=== PATIENT | male | born 1955 | race Caucasian/White ===

== ENCOUNTER 2018-05-03 05:28 | Inpatient (IN) | payer OTHER ==
[2018-04-24 10:06] VITALS: BMI 22.0
[2018-05-03] VITALS (9 sets, daily range): BP systolic 102–160; BP diastolic 69–89; PULSE 84–104; TEMP 36.5–37; O2SAT 9–97; Ht 177.8 cm; Wt 71.4 kg
[~2018-05-03] VITALS: Ht 177.8 cm; Wt 71.4 kg
[~2018-05-03 05:28] MED LIST: AMLO5TAB3 PO; ASPI81TA28 PO; BUPR-79 PO; CLOP1TAB15 PO; CRS/10 PO; FLM4 PO; FLUT50SP45 NAE; LISI-725 PO; MISCCAP77 PO; NTRGSL/4 UT; OXYC-57 PO; PANT40TA2 PO; SIME1CHW17 PO; TIOT1SPR INH; VENL150C56 PO; VNTHFA/IN INH; [UNRECOGNIZED DRUG - CODE] PO
[2018-05-03] MEDS ORDERED: CEFAZOLIN 1000MG IV PUSH 7.5 ML IV SCH (06:00)
[2018-05-03] MEDS ORDERED: LACTATED RINGER'S 1000ML 1,000 ML IV SCH ×2 (06:00)
--- NOTE | 2018-05-03 06:06 | History and Physical ---
History & Physical Date of Service May 03, 2018. History & Physical Chief Complaint rm#7 here for eval for vascular disease, had previous CEA, left CEA done at [facility] and Right CEA at [facility], stroke during surgery of left CEA. Has complaints of leg claudication. Previous lung surgery ? resection vs lobectomy 12/2016 Reason for Consultation Bilateral lower extremity claudication History of Present Illness I had the pleasure of seeing Erasmo Nichole today for evaluation of his peripheral vascular disease. He is a 62-year-old white male who in 2015 he had a left carotid endarterectomy. This subsequently occluded after surgery leaving him with visual disturbances. He later that year in September underwent a right carotid endarterectomy which was uneventful. He comes in today complaining of claudication of his bilateral lower extremities. This is at less than 25 feet. He denies any rest pain in the lower extremities. Denies any ulcerations. Denies any color changes. He also denies any cerebrovascular insufficiency symptoms other than occasional difficulty with the vision in the left eye. He does have a history of hypertension andlung cancer. He has a strong smoking history. He claims to have smoked 5 packs of cigarettes a day but mostly of them burn out on their own. He says as far as total packs he may have gone through 1 or 2 packs a day. He is now down to half a pack . Review of Systems was obtained. 10 systems are reviewed. Only positive findings were cough heartburn and loss of appetite bladder infections and urinary incontinence. Also the complaints of the HPI. Physical Exam Vitals & Measurements HR: 82 (Monitored) BP: 118/64 SpO2: 97% WT: 70.3 kg Physical exam the patient is awake oriented 3 is in no apparent distress with normal body habitus. Blood pressure is 118/64 and right 92/680 on the left. Head and neck within normal limits no soft carotid bruits. Lungs were clear with distant breath sounds. Heart a regular rhythm times and is benign. No aneurysmal dilatation is appreciated. Vascular exam of the lower extremities showed femoral pulses to be +2 on the left and +1 on the right but both sides were on the weak side. There are no pedal pulses in either foot. Upper and lower extremities showed no evidenceof ischemic changes. There are no ulcerations present in either foot. Neurologic exam is grossly intact motor and sensory function. Assessment/Plan. Atherosclerosis of [place] arteries of extremities with intermittent claudication , bilateral legs We will obtain a CTA of the abdominal aorta pelvis and runoff vessels. This will better define the lesions that were dealing with. Hopefully there is lesions present that are amenable to balloon angioplasty and stenting versus open procedure. We will keep you informed of his CT results and his future plans. Thank you very much for letting us participate in the care of this patient DREW Akers MD
[2018-05-03] MEDS ORDERED: ROCURONIUM BROMIDE 10 MG/ML 5 ML VIAL ONE (06:44)
[2018-05-03] MEDS ORDERED: DEXAMETHASONE SOD INJ 4 MG/ML VIAL ONE (06:44)
[2018-05-03] MEDS ORDERED: ONDANSETRON INJ 2 MG/ML 2 ML VIAL ONE (06:44)
[2018-05-03] MEDS ORDERED: NEOSTIGMINE METHYLSULFATE 5 MG/5 ML SYR ONE (06:44)
[2018-05-03] MEDS ORDERED: LIDOCAINE HCL 2% 2 ML VIAL (20MG/ML) ONE (06:44)
[2018-05-03] MEDS ORDERED: PROPOFOL IV EMULSION 10 MG/ML 20 ML VIAL ONE (06:44)
[2018-05-03] MEDS ORDERED: GLYCOPYRROLATE INJ 0.2 MG/ML VIAL ONE (06:44)
[2018-05-03] MEDS ORDERED: MIDAZOLAM HCL 1 MG/ML 2ML VIAL ONE (06:44)
[2018-05-03] MEDS ORDERED: FENTANYL CITRATE INJ 50 MCG/1 ML 2 ML VIAL ONE (06:45)
[2018-05-03] MEDS ORDERED: HEPARIN SOD (PORCINE) 1000 UNIT/ML 10 ML VIAL ONE ×3 (07:15→09:58)
--- NOTE | 2018-05-03 07:16 | History & Physical Bridge Note ---
H&P Re-Evaluation Bridge Note: I have examined the patient, reviewed the History & Physical and in the interval since the performance of the History & Physical I have noted the following changes of clinical significance: No changes noted CTA showed iliac and femoral disease on the right. He is here for a right femoral endarterectomy and possible iliac stenting. I have discussed the risks options and benefits of the procedure with the patient. The patient understands the risks options and benefits and agrees to the procedure.
[2018-05-03] MEDS ORDERED: GELATIN SPONGE SZ 100 ONE (07:40)
[2018-05-03] MEDS ORDERED: PAPAVERINE HCL INJ 30 MG/ML 2 ML VIAL ONE (07:40)
[2018-05-03] MEDS ORDERED: HEPARIN SOD (PORCINE) 5000 UNIT/ML 1 ML VIAL ONE ×2 (07:40→09:51)
[2018-05-03] MEDS ORDERED: BUPIVACAINE/EPINEPHRINE 0.5% MPF 1:200,000 30 ML VIAL ONE (07:40)
[2018-05-03] MEDS ORDERED: LIDOCAINE HCL 1% 20 ML VIAL ONE (07:40)
[2018-05-03] MEDS ORDERED: CEFAZOLIN SOD 1 GM VIAL ONE (07:40)
[2018-05-03] MEDS ORDERED: THROMBIN FOR SOLN 20000 UNIT KIT ONE (07:41)
[2018-05-03] MEDS ORDERED: PHENYLEPHRINE HCL INJ 10 MG/ML VIAL ONE (08:33)
[2018-05-03] MEDS ORDERED: EpHEDrine SULFATE 50MG/5ML SYR ONE (08:33)
[2018-05-03] MEDS ORDERED: VASOPRESSIN 20 UNIT/ML VIAL ONE (08:36)
[2018-05-03] MEDS ORDERED: EpHEDrine SULFATE INJ 50 MG/ML AMP IV PRN (09:45)
[2018-05-03] MEDS ORDERED: MEPERIDINE HCL 25 MG/ML CARP IV PRN (09:45)
[2018-05-03] MEDS ORDERED: LABETALOL HCL IV 5 MG/ML 20ML IV PRN (09:45)
[2018-05-03] MEDS ORDERED: ATROPINE SULFATE 0.1 MG/ML 5ML SYR IV PRN (09:45)
[2018-05-03] MEDS ORDERED: ONDANSETRON INJ 2 MG/ML 2 ML VIAL IV PRN (09:45)
[2018-05-03] MEDS ORDERED: IODIXANOL (VISIPAQUE) 270 MG/ML 50ML IV ONE (10:01)
[2018-05-03] MEDS ORDERED: SURGICEL ABSORB HEMOSTAT 2IN X 14IN TOP ONE (11:37)
--- NOTE | 2018-05-03 11:51 | [facility] Post Operative Brief Note ---
Immediate Operative Summary Operative Date May 03, 2018. Pre-Operative Diagnosis Right illiac artery stenosis Right common femoral artery stenosis Post-Operative Diagnosis Same Procedure(s) Performed Open stenting of right common illiac and external arteries Right common femoral endarterectomy with patch Surgeon Dr Akers Textile Machine Operator Surgeon(s) Marley Osei MD Estimated Blood Loss 200ML Findings Consistent with Post-Op Diagnosis Specimens A. Left femoral plaque Anesthesia Type General Complication(s) none Disposition Accompanied Pt To Recover: no Disposition: Recovery Room / PACU
[2018-05-03] MEDS ORDERED: NITROGLYCERIN 0.4 MG SL PER TAB CHARGE UT PRN (12:00)
[2018-05-03] MEDS ORDERED: ALBUTEROL HFA 8 GM INHALER INH PRN (12:00)
[2018-05-03] MEDS ORDERED: PROTAMINE SULFATE 10 MG/ML 5 ML VIAL IV ONE (12:05)
[2018-05-03] MEDS: FENTANYL CITRATE INJ 50 MCG/1 ML 2 ML VIAL IV PRN ×4 (12:28→12:50)
[2018-05-03] MEDS: HYDROmorphone INJ 0.5 MG/0.5 ML SYR IV PRN ×2 (12:55→13:14)
[2018-05-03 13:00] LABS: BASO % 0.1 %; BASO ABS # 0.02 K/uL (0-0.2); EOS % 0.8 %; EOS ABS # 0.13 K/uL (0-0.5); HEMATOCRIT 32.7 % (42-52); IG# 0.06 K/uL (0.00-0.02); LYMPH % 6.6 %; LYMPH ABS # 1.06 K/uL (1.2-3.4); MEAN CELL VOLUME 92.1 fL (80-100); MEAN CORPUSCULAR HGB CONC 33.6 g/dl (32-36); MEAN PLATELET VOLUME 8.1 fL (7.4-10.4); MONO % 1.4 %; MONO ABS # 0.22 K/uL (0.11-0.59); NEUT % 90.7 %; NEUT ABS # 14.58 K/uL (1.4-6.5); PLATELET COUNT 178 K/uL (130-400); RED CELL DISTRIBUTION WIDTH CV 13.5 % (11.5-14.5); WHITE BLOOD COUNT 16.07 K/uL (4.8-10.8)
--- NOTE | 2018-05-03 13:02 | [facility] Operative Report ---
Operative Report Operative Date May 03, 2018. Pre-Operative Diagnosis Right illiac artery stenosis Right common femoral artery stenosis Post-Operative Diagnosis Same Procedure(s) Performed Open stenting of right common illiac and external arteries Right common femoral endarterectomy with patch Surgeon Dr Akers Assistant Plant Manager Surgeon(s) Marley Osei MD Estimated Blood Loss 200ML Specimens A. Right femoral plaque Anesthesia Type General Complication(s) none Disposition no Recovery Room / PACU Indications Mr. Nichole is a 62 year old man with short distance claudication. He therefore underwent the proceeding procedures for diagnosis and treatment. Description of Procedure The patients bilateral groins were prepped and draped in a sterile fashion. A right groin cutdown was then undertaken to isolate the common femoral artery and its branches. Part of the inguinal ligament was divided to reveal soft external iliac artery. The common femoral artery was punctured and a wire advanced. The needle was exchanged for a short 5 Fr sheath and the wire exchanged for a glidewire. There was difficulty advancing the glidewire and the a hand injection showed it was within in a false lumen. The sheath was redirected and the wire advanced easily into the aorta. A straight guide catheter was then introduced over the glidewire and pullback pressures were obtained. From the aorta to the common iliac artery, a drop in >30mm HG was noted. A stenosis was noted in this area on hand injection. A Viabahn VBX stent was then used to stent the right common iliac artery. On hand injection, the SHAYY stent was well seated, however there was a false lumen noted in the external iliac. An Abbot Absolute self expanding 8x20mm stent was then deployed in the right external iliac artery, however it shifted somewhat in deployment. An Abbot Absolute 9x40mm stent was then used to obtain more proximal purchase. The stents were then angioplastied with a 9mm balloon. On contrast evaluation, all stents were patent and well-seated. Attention was then turned to the endarterectomy. Heparin was re-dosed and after an appropriate circulation time, the artery branches were clamped. The puncture site was used to start the arteriotomy and it was extended using heavy Braxton scissors. The arteriotomy spanned from the distal external iliac to the SFA. The plaque was then elevated and heparinized saline used to identify flaps and remaining plaque. Braxton were used to divide the plaque distally. Tacking 7-0 prolene sutures were used to secure the distal plaque to the SFA ayala. An AccuSeal patch was then sewn in with running Sanford suture. Before the completion of the patch the arteries were back-bled and flushed with heparinized saline. Hemostasis was obtained with thromin, gel foam , and protamine. There was one tear noted in the back wall of the SFA which was repaired with 6-0 Prolene. The subcutaneous tissues were then closed with 2-0 and 3-0 Vicryls and the skin stapled. Dr. Akers was present for the entirety of the case. The patient tolerated the procedure well. I attest to the content of the Intraoperative Record and any orders documented therein. Any exceptions are noted below.
--- NOTE | 2018-05-03 15:20 | Anesthesiology Progress Note ---
Anesthesia Post Op Note Date & Time May 03, 2018 at 15:20 Vital Signs Pain Intensity: 5 Vital Signs Past 12 Hours Date Time Temp Pulse Resp B/P (MAP) Pulse Ox O2 Delivery O2 Flow Rate FiO2 05/03/18 15:07 36.7 100 18 104/69 (81) 97 Nasal Cannula 2.0 05/03/18 14:40 36.5 104 20 106/70 (82) 93 Nasal Cannula 2.0 05/03/18 14:10 36.8 95 18 102/70 (81) 95 Room Air 2.0 05/03/18 13:56 129/73 05/03/18 13:54 90 13 05/03/18 13:54 89 13 96 05/03/18 13:51 129/71 05/03/18 13:49 91 15 96 05/03/18 13:49 91 15 05/03/18 13:46 129/80 05/03/18 13:44 95 22 05/03/18 13:44 95 22 96 05/03/18 13:42 129/67 05/03/18 13:39 89 15 95 05/03/18 13:39 89 15 05/03/18 13:38 95 25 97 05/03/18 13:38 95 25 05/03/18 13:36 130/76 05/03/18 13:33 90 19 95 05/03/18 13:33 91 19 05/03/18 13:31 111/77 05/03/18 13:30 36.4 90 17 111/77 95 Oxymask 2 05/03/18 13:28 90 15 05/03/18 13:28 89 15 96 05/03/18 13:27 118/81 05/03/18 13:23 96 19 96 05/03/18 13:23 94 19 05/03/18 13:22 130/77 05/03/18 13:18 90 13 95 05/03/18 13:18 90 13 05/03/18 13:17 130/74 05/03/18 13:13 94 23 95 05/03/18 13:13 93 23 05/03/18 13:11 153/81 05/03/18 13:08 95 17 150/78 95 05/03/18 13:08 94 17 05/03/18 13:03 97 19 05/03/18 13:03 97 19 97 05/03/18 13:02 111/86 05/03/18 12:58 93 14 05/03/18 12:58 94 14 98 05/03/18 12:57 150/79 05/03/18 12:53 95 20 05/03/18 12:53 95 20 98 05/03/18 12:52 NIBP 05/03/18 12:48 94 17 99 05/03/18 12:48 94 17 05/03/18 12:47 93 17 05/03/18 12:47 93 17 99 05/03/18 12:46 158/84 05/03/18 12:42 96 15 169/95 99 05/03/18 12:42 95 15 05/03/18 12:38 163/91 05/03/18 12:37 96 21 05/03/18 12:37 96 21 100 05/03/18 12:32 95 20 05/03/18 12:32 95 20 100 05/03/18 12:27 96 20 100 05/03/18 12:27 96 20 05/03/18 12:26 157/92 05/03/18 12:23 178/96 05/03/18 12:22 101 16 100 05/03/18 12:22 101 16 05/03/18 12:22 36.6 101 18 178/96 100 Oxymask 10 05/03/18 05:54 37.0 84 18 160/89 96 Room Air Notes Mental Status: alert / awake / arousable, participated in evaluation Pt Amnestic to Procedure: Yes Nausea / Vomiting: adequately controlled Pain: adequately controlled Airway Patency, RR, SpO2: stable & adequate BP & HR: stable & adequate Hydration State: stable & adequate Anesthetic Complications: no major complications apparent
[2018-05-03] MEDS ORDERED: D5W AND 1/2NSS 1,000 ML IV SCH (15:30)
[2018-05-03] MEDS: OXYCODONE/ACETAMINOPHEN 5-325 TAB PO PRN ×2 (17:39→22:07)
[2018-05-03] MEDS: CEFAZOLIN IV 1,000 MG in SYRINGE 0 ML IV SCH (17:40)
[2018-05-03] MEDS: MoRPHine SULFATE 4 MG/ML 1 ML CARP\\VIAL IV PRN (18:51)
[2018-05-03] MEDS ORDERED: NURSING VERBAL MED ORDER ONE (20:45)
[2018-05-03] MEDS ORDERED: PNEUMOCOCCAL POLYSACCHARIDES 25 MCG/0.5 ML VIAL/SYR IM. ONE (21:00)
[2018-05-03] MEDS ORDERED: PNEUMOCOCCAL ADMINISTRATION CHARGE ONE (21:00)
[2018-05-03] MEDS ORDERED: NICOTINE 21 MG/24 HR TDSY EXT ONE (21:30)
[2018-05-03] MEDS: TAMSULOSIN HCL 0.4 MG CAP PO SCH (22:08)
[2018-05-03] MEDS: BuPROPion SR 150 MG TABCR PO SCH (22:08)
[2018-05-03] MEDS: ROSUVASTATIN CALCIUM 10 MG TAB PO SCH (22:09)
[2018-05-04] VITALS (7 sets, daily range): BP systolic 113–150; BP diastolic 60–84; PULSE 74–92; TEMP 35–36.8; O2SAT 92–96
[2018-05-04] MEDS: CEFAZOLIN IV 1,000 MG in SYRINGE 0 ML IV SCH (00:59)
[2018-05-04] MEDS: OXYCODONE/ACETAMINOPHEN 5-325 TAB PO PRN ×4 (02:35→23:59)
[2018-05-04 07:19] LABS: BASO % 0.3 %; BASO ABS # 0.03 K/uL (0-0.2); EOS % 1.4 %; EOS ABS # 0.16 K/uL (0-0.5); HEMATOCRIT 31.2 % (42-52); HEMOGLOBIN 10.4 g/dL (14.0-18.0); IG# 0.03 K/uL (0.00-0.02); LYMPH % 16.2 %; LYMPH ABS # 1.91 K/uL (1.2-3.4); MEAN CELL VOLUME 92.3 fL (80-100); MEAN CORPUSCULAR HEMOGLOBIN 30.8 pg (25-34); MEAN CORPUSCULAR HGB CONC 33.3 g/dl (32-36); MEAN PLATELET VOLUME 8.6 fL (7.4-10.4); MONO % 10.5 %; MONO ABS # 1.24 K/uL (0.11-0.59); NEUT % 71.3 %; NEUT ABS # 8.45 K/uL (1.4-6.5); PLATELET COUNT 202 K/uL (130-400); RED CELL DISTRIBUTION WIDTH CV 13.6 % (11.5-14.5); WHITE BLOOD COUNT 11.82 K/uL (4.8-10.8)
[2018-05-04 07:51] LABS: CALCIUM 8.3 mg/dl (8.5-10.1); CREATININE 1.26 mg/dl (0.60-1.40)
[2018-05-04] MEDS: MoRPHine SULFATE 4 MG/ML 1 ML CARP\\VIAL IV PRN ×5 (08:00→21:17)
--- NOTE | 2018-05-04 08:10 | Progress Note ---
Progress Note Date of Service: May 04, 2018. Subjective Complaining of groin pain. Foot feels fine. Able to move legs without problem Objective Vital Signs Vital Signs Past 12 Hours Date Time Temp Pulse Resp B/P (MAP) Pulse Ox O2 Delivery O2 Flow Rate FiO2 05/04/18 07:04 36.7 74 18 135/84 (101) 94 Room Air 05/04/18 03:35 36.8 81 16 128/74 (92) 96 Room Air 05/04/18 00:00 93 Room Air 05/03/18 23:15 36.7 88 18 127/78 (94) 93 Room Air Exam Awake and alert VSS Afebrile Incision dry and clean. Moderate hematoma present. Good distal flow Laboratory and Microbiology Results Past 24 Hours Test 05/03/18 11:18 05/03/18 12:47 05/03/18 13:16 05/04/18 07:04 Range/Units Kaolin Activated Coagulation Time 219 94-140 SECONDS White Blood Count 16.07 11.82 4.8-10.8 K/uL Red Blood Count 3.55 3.38 4.7-6.1 M/uL Hemoglobin 11.0 10.4 14.0-18.0 g/dL Hematocrit 32.7 31.2 42-52 % Mean Corpuscular Volume 92.1 92.3 80-100 fL Mean Corpuscular Hemoglobin 31.0 30.8 25-34 pg Mean Corpuscular Hemoglobin Concent 33.6 33.3 32-36 g/dl Platelet Count 178 202 130-400 K/uL Mean Platelet Volume 8.1 8.6 7.4-10.4 fL Neutrophils (%) (Auto) 90.7 71.3 % Lymphocytes (%) (Auto) 6.6 16.2 % Monocytes (%) (Auto) 1.4 10.5 % Eosinophils (%) (Auto) 0.8 1.4 % Basophils (%) (Auto) 0.1 0.3 % Neutrophils # (Auto) 14.58 8.45 1.4-6.5 K/uL Lymphocytes # (Auto) 1.06 1.91 1.2-3.4 K/uL Monocytes # (Auto) 0.22 1.24 0.11-0.59 K/uL Eosinophils # (Auto) 0.13 0.16 0-0.5 K/uL Basophils # (Auto) 0.02 0.03 0-0.2 K/uL RDW Standard Deviation 46.0 46.0 36.4-46.3 fL RDW Coefficient of Variation 13.5 13.6 11.5-14.5 % Immature Granulocyte % (Auto) 0.4 0.3 % Immature Granulocyte # (Auto) 0.06 0.03 0.00-0.02 K/uL Bedside Glucose 142 70-99 mg/dl Prothrombin Time 10.9 9.0-12.0 SECONDS Prothromb Time International Ratio 1.0 0.9-1.1 Sodium Level 139 136-145 mmol/L Potassium Level 4.0 3.5-5.1 mmol/L Chloride Level 109 98-107 mmol/L Carbon Dioxide Level 25 21-32 mmol/L Anion Gap 5.0 3-11 mmol/L Blood Urea Nitrogen 17 7-18 mg/dl Creatinine 1.26 0.60-1.40 mg/dl Est Creatinine Clear Calc Drug Dose 59.8 ml/min Estimated GFR () 69.4 Estimated GFR (Non- 59.9 BUN/Creatinine Ratio 13.5 10-20 Random Glucose 101 70-99 mg/dl Calcium Level 8.3 8.5-10.1 mg/dl Imp: Post right femoral endart with patch Plan: Patient required morphine for pain. Will d/c tomorrow if we can get him on oral pain meds.
[2018-05-04] MEDS ORDERED: ENOXAPARIN 30 MG/0.3 ML SYR SQ SCH (09:00)
[2018-05-04] MEDS: FLUTICASONE PROPIONATE NA SPR 16 GM BTL NAE SCH (09:00)
[2018-05-04] MEDS: LISINOPRIL 20 MG TAB PO SCH (10:23)
[2018-05-04] MEDS: VENLAFAXINE HCL XR 150 MG CAPXR PO SCH (10:23)
[2018-05-04] MEDS: ASPIRIN 81 MG ECTAB PO SCH (10:23)
[2018-05-04] MEDS: SIMETHICONE 80 MG CHEW PO SCH (10:24)
[2018-05-04] MEDS: PANTOprazole SOD 40 MG TAB PO SCH (10:24)
[2018-05-04] MEDS: BuPROPion SR 150 MG TABCR PO SCH ×2 (10:24→21:17)
[2018-05-04] MEDS: AMLODIPINE BESYLATE 5 MG TAB PO SCH (10:25)
[2018-05-04] MEDS: CLOPIDOGREL BISULFATE 75 MG TAB PO SCH (10:25)
[2018-05-04] MEDS: NICOTINE 21 MG/24 HR TDSY EXT SCH (14:07)
[2018-05-04] MEDS ORDERED: NURSING VERBAL MED ORDER ONE (17:30)
[2018-05-04] MEDS: ALUMINUM/MAGNESIUM SUSP 30 ML UDC PO PRN ×2 (17:47→22:03)
[2018-05-04] MEDS: TAMSULOSIN HCL 0.4 MG CAP PO SCH (21:17)
[2018-05-04] MEDS: ROSUVASTATIN CALCIUM 10 MG TAB PO SCH (21:17)
[2018-05-05] MEDS: OXYCODONE/ACETAMINOPHEN 5-325 TAB PO PRN ×2 (06:05→12:09)
[2018-05-05 07:54] VITALS: BP 124/81; PULSE 80; TEMP 36.7; O2SAT 94
[2018-05-05] MEDS ORDERED: MAGNESIUM HYDROXIDE SUSP 30 ML UDC PO ONE (08:30)
[2018-05-05] MEDS ORDERED: DOCUSATE SODIUM 100 MG CAP PO ONE (08:30)
--- NOTE | 2018-05-05 08:30 | Progress Note ---
Progress Note Date of Service: May 05, 2018. Subjective Feeling much better Objective Vital Signs Vital Signs Past 12 Hours Date Time Temp Pulse Resp B/P (MAP) Pulse Ox O2 Delivery O2 Flow Rate FiO2 05/05/18 07:54 36.7 80 16 124/81 (95) 94 Room Air 05/05/18 00:03 Room Air 05/04/18 23:31 36.7 92 16 113/74 (87) 92 Room Air Exam Awake and alert Ambulating. VSS Afebrile Groin incision unchanged Good distal flow Holder in place Imp: Post fem endart Plan: Patient to be d/c today. Will remove holder. Patient claims he has to straight cath himself for a while after all procedure. He is able to do it. Would prefer that than a leg bag.
[2018-05-05] MEDS ORDERED: HYDR-5688 PO (08:31)
--- NOTE | 2018-05-05 08:33 | Discharge Instructions ---
Discharge Instructions Date of Service May 05, 2018. Admission Reason for Admission: Iliac & Femoral Stenosis Discharge Discharge Diagnosis / Problem: Right iliac and femoral artery stenosis Discharge Goals Goal(s): Therapeutic intervention Activity Recommendations Activity Limitations: per Instructions/Follow-up section Exercise/Sports Limitations: gradually increase as tolerated Shower/Bathe: may shower/bathe in 3 days Driving or Machine Use: resume 3 days after discharge . Instructions / Follow-Up Instructions / Follow-Up Call [phone] to schedule a follow up appointment if one not already scheduled. Straight cath as needed. ACTIVITY RECOMMENDATIONS: See Above SPECIAL CARE INSTRUCTIONS: Call your doctor if: * Temperature above 101 degrees * Pain not relieved by pain medicine ordered * There is increased drainage or redness from any incision * You have any unanswered questions or concerns. Current Hospital Diet Patient's current hospital diet: AHA Diet (Heart Healthy) Discharge Diet Recommended Diet: AHA Diet (Heart Healthy) Procedures Procedures Performed: Open stenting of right common illiac and external arteries Right common femoral endarterectomy with patch Pending Studies Studies pending at discharge: no Medical Emergencies . Who to Call and When: Medical Emergencies: If at any time you feel your situation is an emergency, please call 911 immediately. . Non-Emergent Contact Non-Emergency issues call your: Surgeon . "Provider Documentation" section prepared by Jordon Akers. .
[2018-05-05] MEDS: NICOTINE 21 MG/24 HR TDSY EXT SCH (09:46)
[2018-05-05] MEDS: ASPIRIN 81 MG ECTAB PO SCH (09:47)
[2018-05-05] MEDS: FLUTICASONE PROPIONATE NA SPR 16 GM BTL NAE SCH (09:47)
[2018-05-05] MEDS: SIMETHICONE 80 MG CHEW PO SCH (09:47)
[2018-05-05] MEDS: AMLODIPINE BESYLATE 5 MG TAB PO SCH (09:48)
[2018-05-05] MEDS: BuPROPion SR 150 MG TABCR PO SCH (09:48)
[2018-05-05] MEDS: CLOPIDOGREL BISULFATE 75 MG TAB PO SCH (10:53)
[2018-05-05] MEDS: PANTOprazole SOD 40 MG TAB PO SCH (10:53)
[2018-05-05] MEDS: LISINOPRIL 20 MG TAB PO SCH (10:53)
[2018-05-05] MEDS: VENLAFAXINE HCL XR 150 MG CAPXR PO SCH (10:53)
[2018-05-05] MEDS ORDERED: MAGNESIUM HYDROXIDE SUSP 30 ML UDC ONE (11:01)
[2018-05-05 11:36] VITALS: BP 124/81; PULSE 80; TEMP 36.7; O2SAT 94
== END 2018-05-05 12:33 | disposition home or self-care (01) | DRG 254 ==
LOC: C.ACU 05:28 → C.MSW 11:56 → ENRESERV 12:57
PROVIDERS: ADMIT Surgery Vascular Surgery; ATTEND Surgery Vascular Surgery
PROC: 04UK0JZ Supplement Right Femoral Artery with Synthetic Substitute, Open Approach (ICD-10-PCS; principal; 2018-05-03 08:00)
PROC: 04CK0Z6 (ICD-10-PCS; principal; 2018-05-03 08:00)
PROC: 047H04Z Dilation of Right External Iliac Artery with Drug-eluting Intraluminal Device, Open Approach (ICD-10-PCS; principal; 2018-05-03 08:00)
PROC: [UNRECOGNIZED PROCEDURE] (principal; 2018-05-03 08:00)
DX: E11.51 Type 2 diabetes mellitus with diabetic peripheral angiopathy without gangrene (principal); I70.213 Atherosclerosis of native arteries of extremities with intermittent claudication, bilateral legs; J44.9 Chronic obstructive pulmonary disease, unspecified; I25.10 Atherosclerotic heart disease of native coronary artery without angina pectoris; I12.9 Hypertensive chronic kidney disease with stage 1 through stage 4 chronic kidney disease, or unspecified chronic kidney disease; E11.22 Type 2 diabetes mellitus with diabetic chronic kidney disease; N18.3 Chronic kidney disease, stage 3 (moderate); E11.42 Type 2 diabetes mellitus with diabetic polyneuropathy; E78.5 Hyperlipidemia, unspecified; K21.9 Gastro-esophageal reflux disease without esophagitis; F41.9 Anxiety disorder, unspecified; F32.9 Major depressive disorder, single episode, unspecified; F17.210 Nicotine dependence, cigarettes, uncomplicated; Z90.2 Acquired absence of lung [part of]; Z86.73 Personal history of transient ischemic attack (TIA), and cerebral infarction without residual deficits; Z79.82 Long term (current) use of aspirin; Z79.02 Long term (current) use of antithrombotics/antiplatelets; Z79.899 Other long term (current) drug therapy; Z88.8 Allergy status to other drugs, medicaments and biological substances

== ENCOUNTER 2018-05-28 08:49 | Inpatient (IN) | payer OTHER ==
[~2018-05-28] VITALS: Ht 177.8 cm; Wt 67.6 kg
[2018-05-28] VITALS (14 sets, daily range): BP systolic 94–192; BP diastolic 57–89; PULSE 74–99; TEMP 37–37.1; O2SAT 94–100; BMI 22.3
[~2018-05-28 08:49] MED LIST changes: +CEFAZOLIN 1000MG IV PUSH 7.5 ML IV SCH; +HYDR-5688 PO; -OXYC-57 PO
[2018-05-28] MEDS ORDERED: SUCCINYLCHOLINE CHLORIDE 20 MG/ML 10 ML VIAL IV ONE (09:51)
[2018-05-28] MEDS ORDERED: MIDAZOLAM HCL 5 MG/ML 1 ML VIAL IV ONE (09:51)
[2018-05-28] MEDS ORDERED: ETOMIDATE 2 MG/ML 20 ML VIAL IV ONE (09:51)
[2018-05-28] MEDS ORDERED: MoRPHine SULFATE 4 MG/ML 1 ML CARP\\VIAL ONE (13:53)
--- NOTE | 2018-05-28 13:56 | History and Physical ---
History & Physical Date of Service May 28, 2018. History & Physical History & Physical Chief Complaint: R groin pain, recent surgery History of Present Illness: Erasmo Nichole is a 62 year old male with multiple medical problems, including lung ca, PAD, CHRISTOPHE, CVA, HTN, transferred to [facility] d/t pain and swelling and bleeding from R groin surgical site. Pt underwent R femoral endarterectomy with acuseal patch as well as stenting of R common and external iliac arteries by Dr Akers on 05/03/18, and overall had been doing well as outpt. He did have a small hematoma to R groin post op, however, no signs of infection or continued bleeding at office appt and tayo were removed 2 weeks post op. Pt states he has had some mild pain post op which was controlled with medications. Last night he noted sudden onset of severe pain and increased swelling of his R groin, which also started bleeding, so he went to local ED. Imaging from [place] indicated R groin hematoma without extravasation. He denies any rest pain in the lower extremities. Denies any ulcerations. Denies any color changes. He also denies any cerebrovascular insufficiency symptoms other than occasional difficulty with the vision in the left eye. He has a strong smoking history. He claims to have smoked 5 packs of cigarettes a day but mostly of them burn out on their own. He says as far as total packs he may have gone through 1 or 2 packs a day. He is now down to half a pack . Review of Systems was obtained. 10 systems are reviewed. Only positive findings were cough heartburn and loss of appetite bladder infections and urinary incontinence. Also the complaints of the HPI. Physical Exam Vitals: stable Physical exam the patient is awake oriented 3 is in moderate distress d/t pain with normal body habitus. Pt is pale. Head and neck within normal limits no soft carotid bruits. Lungs were clear with distant breath sounds. Heart a regular rhythm times and is benign. No aneurysmal dilatation is appreciated. Vascular exam of the lower extremities showed femoral pulses to be +2 on the left and +1 on the right but both sides were on the weak side. There are no pedal pulses in either foot. Upper and lower extremities showed no evidenceof ischemic changes. There are no ulcerations present in either foot. Neurologic exam is grossly intact motor and sensory function. R groin surgical site with marked erythema, warmth, and induration, with moderate bleeding noted. + tenderness. Palpable distal pulses R foot, toes + cap refill. Assessment/Plan. R groin infected hematoma s/p R femoral endarterectomy and R common and external iliac stents Pt also seen by Dr Akers, recommends pt undergo exploration/evacuation of R groin infected hematoma. Pt agreeable. Patient with bleeding hematoma of right groin. Will need exploration and evacuation today. I have discussed the risks options and benefits of the procedure with the patient. The patient understands the risks options and benefits and agrees to the procedure.
[2018-05-28] MEDS ORDERED: SODIUM CHLORIDE 0.9% 1000ML 1,000 ML IV ONE (13:57)
[2018-05-28] MEDS ORDERED: ONDANSETRON INJ 2 MG/ML 2 ML VIAL IV PRN (14:00)
[2018-05-28] MEDS ORDERED: NURSING VERBAL MED ORDER ONE ×2 (14:00→16:00)
[2018-05-28] MEDS ORDERED: ACETAMINOPHEN 325 MG TAB PO PRN (14:00)
[2018-05-28] MEDS ORDERED: NITROGLYCERIN 0.4 MG SL PER TAB CHARGE UT PRN (14:15)
[2018-05-28] MEDS ORDERED: ALBUTEROL HFA 8 GM INHALER INH PRN (14:15)
[2018-05-28] MEDS ORDERED: MoRPHine SULFATE 2 MG/ML CARP ONE (15:23)
[2018-05-28] MEDS ORDERED: LIDOCAINE HCL 2% 2 ML VIAL (20MG/ML) ONE (15:28)
[2018-05-28] MEDS ORDERED: NEOSTIGMINE METHYLSULFATE 5 MG/5 ML SYR ONE (15:28)
[2018-05-28] MEDS ORDERED: GLYCOPYRROLATE INJ 0.2 MG/ML VIAL ONE (15:28)
[2018-05-28] MEDS ORDERED: PROPOFOL IV EMULSION 10 MG/ML 20 ML VIAL ONE (15:28)
[2018-05-28] MEDS ORDERED: FENTANYL CITRATE INJ 50 MCG/1 ML 2 ML VIAL ONE (15:28)
[2018-05-28] MEDS ORDERED: DEXAMETHASONE SOD INJ 4 MG/ML VIAL ONE (15:28)
[2018-05-28] MEDS ORDERED: ONDANSETRON INJ 2 MG/ML 2 ML VIAL ONE (15:28)
[2018-05-28] MEDS ORDERED: MIDAZOLAM HCL 1 MG/ML 2ML VIAL ONE (15:29)
[2018-05-28] MEDS ORDERED: MoRPHine SULFATE 2 MG/ML CARP IV STA (15:35)
[2018-05-28] MEDS ORDERED: BACITRACIN 50000 UNIT VIAL ONE ×2 (15:55→21:38)
[2018-05-28] MEDS ORDERED: RAPID SEQUENCE INDUCTION BAG ONE (16:24)
[2018-05-28] MEDS ORDERED: HEPARIN SOD (PORCINE) 1000 UNIT/ML 10 ML VIAL ONE (16:33)
[2018-05-28] MEDS ORDERED: GELATIN SPONGE SZ 100 ONE ×2 (16:34→16:44)
[2018-05-28] MEDS ORDERED: THROMBIN FOR SOLN 20000 UNIT KIT ONE (16:34)
[2018-05-28] MEDS ORDERED: THROMBIN 5000 UNITS KIT ONE (16:43)
[2018-05-28] MEDS ORDERED: LIDOCAINE HCL 1% 20 ML VIAL ONE (16:43)
[2018-05-28] MEDS ORDERED: BUPIVACAINE/EPINEPHRINE 0.5% MPF 1:200,000 30 ML VIAL ONE (16:43)
[2018-05-28] MEDS ORDERED: PROPOFOL IV EMULSION 10 MG/ML 100 ML VIAL ONE (16:45)
[2018-05-28] MEDS ORDERED: PROPOFOL IV EMULSION 10 MG/ML 100 ML VIAL IV STA (16:46)
--- NOTE | 2018-05-28 16:55 | HISTORY & PHYSICAL EXAMINATION ---
DATE OF ADMISSION: 05/28/2018 I was called by the nurses to the patient's room as he was having bleeding from the right femoral area. Apparently, he had recent vascular surgery and was being evaluated for possible dehiscence of his anastomosis. The nurses were in the room holding pressure with a relatively large bandage over the right femoral area. The pt was patient awake. He was somewhat agitated from pain. On inspection, he did have some oozing. The wound was open, approximately 3 to 4 cm, with some clot and then oozing from the lower portion of the wound. It did appear that we could hold pressure in a relatively pinpoint manner on the wound and control the bleeding. We did discuss with the patient's vascular team the possibility of transfer if urgent surgery was not available at our hospital. After discussion with the doctors at [facility] and our vascular team, it was felt that if the right femoral area could be relatively well controlled, it would be just as expedient for him to stay at our hospital. We were able to ask the microbiology lab assistant to bring a pressure device, which we were able to place on the right femoral area and control the oozing very well. At this point, we felt that it would be better for the patient to be transferred to the intensive care unit for pain management and also potential intubation if necessary. The patient's vital signs remained stable. His foot showed evidence of capillary refill, and his toes were pink with the compression device in place. At this point, the patient was taken to the intensive care unit. His care was continued there. JUJU
[2018-05-28] MEDS ORDERED: PHENYLEPHRINE HCL INJ 10 MG/ML VIAL ONE (17:02)
[2018-05-28] MEDS ORDERED: SODIUM CHLORIDE 0.9% INJ 10 ML VIAL ONE (17:02)
[2018-05-28] MEDS ORDERED: EpHEDrine SULFATE INJ 50 MG/ML AMP ONE (17:02)
[2018-05-28] MEDS ORDERED: ALBUMIN HUMAN 5% 12.5 GM/250 ML VIAL IV ONE ×2 (17:04→19:41)
[2018-05-28 17:18] LABS: BASO % 0.1 %; BASO ABS # 0.02 K/uL (0-0.2); EOS % 0.2 %; EOS ABS # 0.05 K/uL (0-0.5); HEMATOCRIT 27.3 % (42-52); HEMOGLOBIN 8.9 g/dL (14.0-18.0); IG# 0.04 K/uL (0.00-0.02); LYMPH % 3.2 %; LYMPH ABS # 0.65 K/uL (1.2-3.4); MEAN CELL VOLUME 93.8 fL (80-100); MEAN CORPUSCULAR HEMOGLOBIN 30.6 pg (25-34); MEAN PLATELET VOLUME 8.7 fL (7.4-10.4); MONO % 7.6 %; MONO ABS # 1.54 K/uL (0.11-0.59); NEUT % 88.7 %; NEUT ABS # 18.06 K/uL (1.4-6.5); PLATELET COUNT 219 K/uL (130-400); RED CELL DISTRIBUTION WIDTH CV 13.7 % (11.5-14.5); RED CELL DISTRIBUTION WIDTH SD 46.9 fL (36.4-46.3); WHITE BLOOD COUNT 20.36 K/uL (4.8-10.8)
[2018-05-28 17:20] LABS: MEAN CORPUSCULAR HGB CONC 32.6 g/dl (32-36)
--- NOTE | 2018-05-28 17:20 | Anesthesiology Progress Note ---
Anesthesia Progress Note Date of Service May 28, 2018. Progress Notes Called to ICU as patient had bleeding right groin from recent vascular surgery procedure and was in extreme pain with need for emergent intubation. Patient slated to go to OR once vascular surgeon available but felt it was appropriate to secure his airway now prior to him decompensating. Patient was on STD ASA monitors with suction available, free flowing IV, AUTOMOBILE LOCATOR's present, respiratory therapy present and ICU PA present. BP elevated and HR in 90's. Patient preoxygenated via ambubag at 15L/min. 14mg etomidate pushed via IV followed by 120mg succinylcholine once patient nonresponsive (potassium noted from earlier in the day to be WNL). 8.0 ETT easily inserted with glidescope #3. Placement confirmed via auscultation (b/l breath sounds heard) and color change EtCO2. ETT secured at 23cm at gums by RT. Patient placed on ventilator and started on IV sedation. Afterwards, using sterile technique I placed a left radial arterial line under ultrasound guidance. This was done on the first attempt and it was secured in placed with sterile dressings. Prior to intubating patient, I obtained verbal consent for the intubation, arterial line and general anesthesia in the operating room. Given the emergent nature of the procedures, did not want to pause and attempt to have the patient sign the consent. Verbal Consent obtained with AUTOMOBILE LOCATOR and PA present. His vital signs remained stable throughout the procedure and no complications were noted.
--- NOTE | 2018-05-28 17:42 | Critical Care Consultation ---
Critical Care Consultation Date of Consultation: May 28, 2018. Attending Physician: Jordon Akers M.D. 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 Akers. He was at home recuperating well but began to develop pain in the right groin. He was presented to [place] ED and thought to have an infection in the area with a hematoma. CT scan completed there showed a stent in the right common iliac and right external iliac artery. There was also new dissection flap within the right common iliac artery just distal to the stent. A hematoma in the right groin measuring 8 x 3.5 x 5.1 cm was identified with no extravasation. He was then transferred to [facility] to the medical floor and evaluated by the vascular team who found the area to be painful and indurated with no active bleeding. He subsequently had an increase in pain and the area ruptured. Nursing staff applied direct pressure and Dr. Machuca from surgery was consulted. He was transferred to room 110 in the ICU for evaluation and treatment with a Fem Stop. Due to his pain and changing hemodynamics, he was urgently intubated by anesthesia and a right radial arterial line was placed. Patient was sedated with propofol gtt and PRN midazolam and fentanyl pending transfer to the OR. The patients daughter Everardo Bentley was contacted by phone by anesthesia and gave consent for anesthesia, blood products, the arterial line, and a central line if needed. Past Medical/Surgical History Medical Problems: Peripheral vascular disease Atherosclerosis of artery of both lower extremities Infected hematoma following procedure Hypertension History of stroke with prior left CEA with visual disturbances Lower extremity claudication History of lung cancer Previous lung surgery with questionable resection versus lobectomy December 2016 Tobacco abuse with history of 5 packs per day Past surgical history: Open stenting of right common iliac and external arteries 05/03/2018 at Right common femoral endarterectomy with patch 05/03/2018 at Prior left carotid endarterectomy at [facility] Prior right carotid endarterectomy at [facility] Family History Unable to obtain secondary to patient condition Social History Smoking Status: Current Every Day Smoker Smokeless Tobacco Use: Unknown Alcohol Use: Unknown Drug Use: other (Unknown) Marital Status: single Housing Status: lives alone Occupation Status: other (Unknown) Allergies Coded Allergies: Fluticasone (Verified Allergy, Unknown, DIZZY, BLOOD PRESSURE ISSUES, 05/03) Milk Protein Extract (Verified Allergy, Unknown, DIZZY, BLOOD PRESSURE ISSUES, 05/03/18) Salmeterol (Verified Allergy, Unknown, DIZZY, BLOOD PRESSURE ISSUES, ) Umeclidinium (Verified Allergy, Unknown, DIZZY, BLOOD PRESSURE ISSUES, ) Vilanterol (Verified Allergy, Unknown, DIZZY, BLOOD PRESSURE ISSUES, ) Home Medications Scheduled Amlodipine (Norvasc), 5 MG PO QAM Aspirin (Aspirin Ec), 81 MG PO QAM Bupropion (Wellbutrin Sr), 150 MG PO BID Clopidogrel (Plavix), 75 MG PO QAM Fluticasone Propionate (Nasal) (Allergy Nasal Strawberry 24 Ho), 2 SPRAYS RADHA QAM Hydrocodone-Acetaminophen (Hydrocodone Bitartrate/AC 5-325 mg), 1 TAB PO BID Lisinopril (Zestril), 20 MG PO QAM Pantoprazole (Pantoprazole Sodium), 1 TAB PO QAM Probiotic Product (Probiotic & Acidophilus F), 1 CAP PO QAM Rosuvastatin Calcium (Crestor), 10 MG PO HS Simethicone (Gas Relief), 1 TAB PO QAM Tamsulosin HCl (Tamsulosin HCl), 1 TAB PO QPM Venlafaxine Hcl (Effexor Extended Rel), 150 MG PO QAM Scheduled PRN Albuterol Hfa (Ventolin Hfa), 2-4 PUFFS INH QID PRN for SOB/Wheezing Hydrocodone/Acetaminophen 5MG/325MG ([place] 5MG/325MG), 2 TABLETS PO Q4 PRN for Pain Nitroglycerin (Nitrostat), 0.4 MG UT PRN PRN for Chest Pain Miscellaneous Medications Tiotropium [place] (Spiriva Respimat), 2 PUFF INH Current Inpatient Medications Current Inpatient Medications Medications (Trade) Dose Ordered Sig/Justina Route Start Time Stop Time Status Last Admin Dose Admin Cefazolin Sodium 7.5 ml @ 2.5 mls/min PREOP IV 05/28/18 06:00 05/28/18 19:00 Sodium Chloride 1,000 ml @ 80 mls/hr [id number] ONCE IV 05/28/18 13:57 05/29/18 02:26 05/28/18 14:34 80 MLS/HR Enoxaparin Sodium (Lovenox Inj) 40 mg Q24H SQ 05/29/18 09:00 06/28/18 08:59 Acetaminophen (Tylenol Tab) 650 mg Q4H PRN PO 05/28/18 14:00 06/27/18 13:59 Ondansetron HCl (Zofran Inj) 4 mg Q6H PRN IV 05/28/18 14:00 06/27/18 13:59 Amlodipine Besylate (Norvasc Tab) 5 mg QAM PO 05/29/18 09:00 06/28/18 08:59 Aspirin (Ecotrin Tab) 81 mg QAM PO 05/29/18 09:00 06/28/18 08:59 Bupropion HCl (Wellbutrin-Sr Tab) 150 mg BID PO 05/28/18 21:00 06/27/18 20:59 Fluticasone Propionate (Flonase Nasal Strawberry) 2 sprays QAM RADHA 05/29/18 09:00 06/28/18 08:59 Lisinopril (Zestril Tab) 20 mg QAM PO 05/29/18 09:00 06/28/18 08:59 Nitroglycerin (Nitrostat Tab) 0.4 mg PRN PRN UT 05/28/18 14:15 06/27/18 14:14 Pantoprazole Sodium (Protonix Tab) 40 mg QAM PO 05/29/18 09:00 06/28/18 08:59 Rosuvastatin Calcium (Crestor Tab) 10 mg HS PO 05/28/18 21:00 06/27/18 20:59 Simethicone (Mylicon Chew Tab) 80 mg QAM PO 05/29/18 09:00 06/28/18 08:59 Tamsulosin HCl (Flomax Cap) 0.4 mg QPM PO 05/28/18 21:00 06/27/18 20:59 Venlafaxine HCl (effeXOR EXTENDED REL CAP) 150 mg QAM PO 05/29/18 09:00 06/28/18 08:59 Albuterol (Ventolin Hfa Inhaler) 2 puffs QID PRN INH 05/28/18 14:15 06/27/18 14:14 Midazolam HCl (Versed Inj) 2 mg Q2H PRN IV 05/28/18 16:45 06/27/18 16:44 Fentanyl Citrate (Fentanyl Inj) 50 mcg Q1H PRN IV 05/28/18 16:45 06/11/18 16:44 Review of Systems Unable to obtain secondary to patient condition Physical Exam Date Time Temp Pulse Resp B/P (MAP) Pulse Ox O2 Delivery O2 Flow Rate FiO2 05/28/18 16:40 100 05/28/18 16:08 37.0 94 22 148/66 (93) 99 Nasal Cannula 3.0 05/28/18 15:35 37.0 99 20 136/76 (96) 97 Nasal Cannula 2.0 05/28/18 15:17 37.0 98 20 143/73 (96) 97 Nasal Cannula 2.0 05/28/18 13:01 37.0 92 20 120/65 95 Nasal Cannula 2.0 GENERAL : Significant acute distress secondary to pain in right groin EYES: No icterus, gaze conjugate. PERRL NOSE: No evidence of epistaxis MOUTH: No lesions or candidiasis. Poor dentition. Tongue midline NECK: Supple. No evidence of carotid bruits or stridor LUNGS: CTA B/L, no wheezes, rales or rhonchi HEART: Regular, tachycardic ABDOMEN: Soft, NT, ND, BS Present EXTREMITIES: No LE edema, pedal pulses intact and palpable bilaterally and confirmed with Doppler NEURO: Patient awake and alert and in severe distress. Unable to adequately perform neurological examination Laboratory Results Last 24 Hours Test 05/28/18 17:02 05/28/18 17:07 White Blood Count 20.36 K/uL Red Blood Count 2.91 M/uL Hemoglobin 8.9 g/dL Hematocrit 27.3 % Mean Corpuscular Volume 93.8 fL Mean Corpuscular Hemoglobin 30.6 pg Mean Corpuscular Hemoglobin Concent 32.6 g/dl Platelet Count 219 K/uL Mean Platelet Volume 8.7 fL Neutrophils (%) (Auto) 88.7 % Lymphocytes (%) (Auto) 3.2 % Monocytes (%) (Auto) 7.6 % Eosinophils (%) (Auto) 0.2 % Basophils (%) (Auto) 0.1 % Neutrophils # (Auto) 18.06 K/uL Lymphocytes # (Auto) 0.65 K/uL Monocytes # (Auto) 1.54 K/uL Eosinophils # (Auto) 0.05 K/uL Basophils # (Auto) 0.02 K/uL RDW Standard Deviation 46.9 fL RDW Coefficient of Variation 13.7 % Immature Granulocyte % (Auto) 0.2 % Immature Granulocyte # (Auto) 0.04 K/uL Blood Gas Sample Site Art Line Bedside Blood Gas pH (LAB) 7.26 Bedside Blood Gas pCO2 (LAB) 53 mmHg Bedside Blood Gas pO2 (LAB) 416 mmHg Bedside Blood Gas HCO3 (LAB) 24 meq/L Bedside Blood Gas Total CO2 25 mEq/l Bedside Blood Gas Base Excess (LAB) -4.0 meq/L Bedside Blood Gas O2 Saturation 100.0 % Errol Test NA Oxygen Delivery Device Ventilator Bedside Oxygen Rate (breaths/min) 14 Blood Gas Minute Ventilation 7.0 Bedside FiO2 80 % Blood Gas Tidal Volume 500 Blood Gas PEEP 5 Diagnostic Results Chest x-ray completed status post endotracheal intubation. Endotracheal tube appears to be 4 cm above the andrew. No evidence of pneumothorax. 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 Akers. Patient developed pain and presented to [place] to the [facility] where he was found to have probable infection of the right groin with new dissection flap in the right common iliac artery just distal to the stent as well as a hematoma. Patient was transferred to to be evaluated by Dr. Akers. Patient was stable on arrival with induration and pain at the groin site and was scheduled for surgery tomorrow for exploration repair. He subsequently ruptured at the femoral site and a Femstop was applied. Patient was intubated successfully and placed on mechanical ventilation pending surgery tonight. RIGHT GROIN BLEED * History of right common femoral endarterectomy with patch as well as stenting of the right common iliac and external artery 05/03/2018 * Suspected rupture of repair with hematoma * FemoStop applied and manage pending surgery * Dr. Akers is aware and will take to the OR tonight for repair * Further management per Dr. Akers VASCULAR ACCESS * Patient significant vasculopathic * Known right subclavian stenosis * Peripheral IVs 2 currently present * Would defer all central lines to Dr. Akers * Currently no indication for central venous access * A left radial artery access was obtained for monitoring of blood pressure and obtaining ABGs HYPERTENSION * Continue home Norvasc, lisinopril * Patient currently sedated with midazolam, fentanyl, propofol * May require additional antihypertensives but currently hemodynamically stable COPD * Extensive smoking history and current every day smoker * Currently intubated pending surgery -will wait and see if patient comes back extubated * Patient should be continued on his bronchodilators * If the patient remains intubated will use albuterol and ipratropium HFA 4 sprays direct line to event 4 times daily * If patient is extubated postsurgically continue home regimen with albuterol HFA as needed and Spiriva Respimat DEPRESSION * Patient currently on Wellbutrin SR 150 mg p.o. twice daily, and effects or ER 150 mg p.o. every morning * Currently n.p.o. for surgery and mechanical ventilation * Resume home meds when able GERD * Continue pantoprazole 40 mg daily DVT PROPHYLAXIS * Currently will hold any chemical prophylaxis pending surgery * Patient is on clopidogrel daily with presumed last dose today * Chemical prophylaxis per Dr. Akers postsurgically * We will also check with vascular regarding teds and SCDs CCT: 70 minutes Thank you very much for including us in the care of this patient. Please refer to Dr. Grace's addendum for further recommendations Attending physician note: Patient seen and examined. I agree with above note by Chip Alfaro Patient will be transfused 1 unit of packed red blood cells while awaiting OR
[2018-05-28 17:46] LABS: CALCIUM 8.2 mg/dl (8.5-10.1); CREATININE 1.28 mg/dl (0.60-1.40); POTASSIUM 4.8 mmol/L (3.5-5.1)
--- NOTE | 2018-05-28 19:07 | DIAGNOSTIC IMAGING REPORT ---
SINGLE VIEW CHEST CLINICAL HISTORY: Respiratory failure. Intubation. FINDINGS: An AP, portable, supine chest radiograph is obtained. Correlation is made with abdominal CT dated 05/28/2018. The examination is degraded by portable technique and patient rotation. An endotracheal tube has been placed. The tip of the catheter projects 5 cm above the andrew. The cardiomediastinal silhouette is unremarkable noting atherosclerotic calcification of the thoracic aorta. Suture material is suggested in the left suprahilar region. Emphysematous change is suspected, with nonspecific interstitial thickening. No airspace consolidation, large pleural effusion, or pneumothorax is seen. The bony thorax is grossly intact. Fusion hardware is noted in the lower cervical spine. IMPRESSION: 1. An endotracheal tube has been placed as above. 2. Suspect emphysema and a history of previous left-sided pulmonary resection. 3. There is no airspace consolidation, large pleural effusion, or pneumothorax. Electronically signed by: Chip Caruso M.D. 05/28/2018 7:05 PM Dictated Date/Time: 05/28/2018 7:03 PM
[2018-05-28] MEDS ORDERED: ROCURONIUM BROMIDE 10 MG/ML 5 ML VIAL ONE (20:20)
[2018-05-28] MEDS ORDERED: VANCOMYCIN 1GM ED/ASU OMNICELL ONE (20:26)
--- NOTE | 2018-05-28 20:55 | [facility] Post Operative Brief Note ---
Immediate Operative Summary Operative Date May 28, 2018. Pre-Operative Diagnosis Disrupted femoral anastamosis Post-Operative Diagnosis Disrupted femoral anastamosis Procedure(s) Performed Repair of femoral anastamosis Surgeon Dr. Akers Outboard Technician Surgeon(s) Vidhya Bro MD Estimated Blood Loss 300 Findings Consistent with Post-Op Diagnosis Specimens culture sent Drains None Anesthesia Type General Complication(s) none Disposition Accompanied Pt To Recover: no Disposition: Surgical ICU
[2018-05-28] MEDS ORDERED: BuPROPion SR 150 MG TABCR PO SCH (21:00)
[2018-05-28] MEDS: ROSUVASTATIN CALCIUM 10 MG TAB PO SCH (21:00)
[2018-05-28] MEDS: TAMSULOSIN HCL 0.4 MG CAP PO SCH (21:00)
[2018-05-28] MEDS ORDERED: VANCOMYCIN CONSULT ACTIVE PRN (21:15)
--- NOTE | 2018-05-28 21:19 | [facility] Operative Report ---
Operative Report Operative Date May 28, 2018. Pre-Operative Diagnosis Disrupted femoral anastamosis Post-Operative Diagnosis Disrupted femoral anastamosis Procedure(s) Performed Repair of femoral anastamosis Surgeon Dr. Akers Disability Hearing Officer Surgeon(s) Vidhya Elliott MD Estimated Blood Loss 300 Specimens culture sent Drains None Anesthesia Type General Complication(s) none Disposition no Surgical ICU Indications Erasmo Nichole is a 62 year old male with multiple medical problems, including lung ca, PAD, CHRISTOPHE, CVA, HTN, transferred to [facility] d/t pain and swelling and bleeding from R groin surgical site today. He underwent a right femoral endarterectomy with Acuseal patch as well as stenting of the right common and external iliac arteries by Dr Akers on 05/03/18, and overall had been doing well as an outpatient. He did have a small hematoma to rightgroin post op, however, no signs of infection or continued bleeding at office appt and tayo were removed 2 weeks post op. Last night he noted sudden onset of severe pain and increased swelling of his R groin. He went to the local ED and was transferred to [facility] for further care. After arrival to [facility] his wound dehisced. A Femstop device was placed to hold pressure over his femoral artery until he could be transferred to the OR. Risks, benefits and alternatives to surgical intervention were discussed with him and he agreed to proceed. Description of Procedure The patient was brought to the operating room and placed in the supine position. The Femstop was removed and his right groin was prepped with betadine and draped in the standard fashion. He was administered preoperative antibiotics. A clot was removed from his open wound. There was arterial bleeding discovered from the femoral artery on the lateral side of the Acuseal patch anastomosis with approximately 1 cm disruption. The incision was extended superiorly. He was given 5000 U IV heparin. The femoral artery was controlled proximally and distally with DeBakey clamps. The patch was oversewn with 5-0 Prolene. Hemostasis was achieved. The soft tissues of the wound were closed in 2 layers with 2-0 Vicryl and 3-0 Vicryl. The skin was closed with tayo. He tolerated the procedure well with no apparent complications. He was brought back to the ICU, intubated, in stable condition. Dr. Akers was scrubbed and present for the entire case. I attest to the content of the Intraoperative Record and any orders documented therein. Any exceptions are noted below.
[2018-05-28] MEDS ORDERED: VANCOMYCIN IV 1,750 MG in SODIUM CHLORIDE 0.9% 500ML 500 ML IV STA (21:26)
[2018-05-28 21:47] LABS: BASO % 0.1 %; BASO ABS # 0.02 K/uL (0-0.2); EOS ABS # 0.01 K/uL (0-0.5); HEMATOCRIT 30.9 % (42-52); HEMOGLOBIN 10.3 g/dL (14.0-18.0); IG# 0.08 K/uL (0.00-0.02); LYMPH % 3.3 %; LYMPH ABS # 0.71 K/uL (1.2-3.4); MEAN CELL VOLUME 92.8 fL (80-100); MEAN CORPUSCULAR HEMOGLOBIN 30.9 pg (25-34); MEAN CORPUSCULAR HGB CONC 33.3 g/dl (32-36); MEAN PLATELET VOLUME 8.6 fL (7.4-10.4); MONO % 6.4 %; MONO ABS # 1.39 K/uL (0.11-0.59); NEUT % 89.8 %; NEUT ABS # 19.56 K/uL (1.4-6.5); PLATELET COUNT 182 K/uL (130-400); RED CELL DISTRIBUTION WIDTH CV 13.9 % (11.5-14.5); RED CELL DISTRIBUTION WIDTH SD 47.6 fL (36.4-46.3); WHITE BLOOD COUNT 21.77 K/uL (4.8-10.8)
[2018-05-28] MEDS ORDERED: VANCOMYCIN IV 750 MG in SODIUM CHLORIDE 0.9% 250ML 250 ML IV STA (21:55)
--- NOTE | 2018-05-28 22:00 | Pharmacy Progress Note ---
Pharmacy Abx Dose Short Note Date of Service May 28, 2018. Assessment & Plan A/P 1000mg vanco started in OR. Will augment subtherapeutic loading dose with additional 750mg to complete a 25mg/kg loading dose. Will order subsequent 1000mg (14mg/kg) q14 maintenance dose. Trough ordered for 05/30/18 @1530, prior to 1600 dose. Pharmacy will continue to follow and will adjust dose/frequency as necessary. Thank you.
--- NOTE | 2018-05-28 22:09 | Anesthesiology Progress Note ---
Anesthesia Progress Note Date of Service May 28, 2018. Progress Notes Patient had b/l upper extremity IV's placed prior to coming to OR. RUE IV was used for 1 unit of pRBC's in ICU. Patient brought to OR and had his RUE tucked for the procedure. Prior to doing so, placed warmed line to this IV and during the procedure gave 1 unit of pRBC's. After procedure was completed, drapes removed and it was noted that patient's RUE IV had infiltrated. The IV ran well during the case and the unit was transfused through this IV without issue. NO medications were given through that line. IV was removed and pressure dressing was applied. Warm compress was placed on the arm and patient's CONSULTING ENGINEER was made aware when the patient was brought back to the ICU.
[2018-05-28] MEDS: FENTANYL CITRATE INJ 50 MCG/1 ML 2 ML VIAL IV PRN ×2 (22:12→23:26)
[2018-05-28] MEDS: MIDAZOLAM HCL 1 MG/ML 2ML VIAL IV PRN (22:12)
--- NOTE | 2018-05-28 22:13 | Anesthesiology Progress Note ---
Anesthesia Post Op Note Date & Time May 28, 2018 at 22:10 Vital Signs Pain Intensity: 10.0 Vital Signs Past 12 Hours Date Time Temp Pulse Resp B/P (MAP) Pulse Ox O2 Delivery O2 Flow Rate FiO2 05/28/18 21:40 86 20 244/116 100 Mechanical Ventilator 30 221/100 05/28/18 21:32 40 05/28/18 21:30 36.6 79 20 174/108 100 Mechanical Ventilator 30 05/28/18 19:35 37.0 05/28/18 19:30 80 20 110/63 99 05/28/18 19:05 40 05/28/18 19:00 79 20 129/74 99 05/28/18 18:50 37.1 95 24 111/64 99 05/28/18 18:39 37.0 91 20 98/65 99 05/28/18 18:21 37.0 94 16 94/57 99 05/28/18 17:30 40 05/28/18 16:40 100 05/28/18 16:08 37.0 94 22 148/66 (93) 99 Nasal Cannula 3.0 05/28/18 15:35 37.0 99 20 136/76 (96) 97 Nasal Cannula 2.0 05/28/18 15:17 37.0 98 20 143/73 (96) 97 Nasal Cannula 2.0 05/28/18 13:01 37.0 92 20 120/65 95 Nasal Cannula 2.0 Notes Mental Status: see Notes Pt Amnestic to Procedure: Yes Nausea / Vomiting: adequately controlled Pain: adequately controlled Airway Patency, RR, SpO2: see Notes BP & HR: stable & adequate Hydration State: stable & adequate Anesthetic Complications: no major complications apparent Patient was brought back to the ICU intubated as discussed before the procedure with the ICU PA. We felt the patient would benefit from good pain control overnight and a controlled airway to ensure no aggitation and further disruption of his anastamosis. VSS. RUE IV that had 1 unit of pRBC transfused through it was noted to be infiltrated after the procedure had ended. MUSICAL THERAPIST was made aware. Sedation to be continued per ICU protocol.
[2018-05-29] VITALS (22 sets, daily range): BP systolic 99–190; BP diastolic 62–116; PULSE 78–102; TEMP 36.8–37.7; O2SAT 90–100; Ht 177.8 cm; Wt 67.6 kg
[2018-05-29] MEDS: MIDAZOLAM HCL 1 MG/ML 2ML VIAL IV PRN ×2 (00:15→07:21)
[2018-05-29] MEDS: FENTANYL CITRATE INJ 50 MCG/1 ML 2 ML VIAL IV PRN ×7 (00:33→23:56)
[2018-05-29] MEDS ORDERED: NURSING VERBAL MED ORDER ONE (00:45)
[2018-05-29] MEDS: PROPOFOL IV EMULSION 10 MG/ML 100 ML VIAL IV PRN ×2 (01:15→06:11)
[2018-05-29 04:47] LABS: BASO % 0.1 %; BASO ABS # 0.02 K/uL (0-0.2); EOS % 0.5 %; EOS ABS # 0.09 K/uL (0-0.5); HEMATOCRIT 28.4 % (42-52); HEMOGLOBIN 9.3 g/dL (14.0-18.0); IG# 0.04 K/uL (0.00-0.02); LYMPH % 5.4 %; LYMPH ABS # 0.96 K/uL (1.2-3.4); MEAN CELL VOLUME 93.1 fL (80-100); MEAN CORPUSCULAR HEMOGLOBIN 30.5 pg (25-34); MEAN CORPUSCULAR HGB CONC 32.7 g/dl (32-36); MEAN PLATELET VOLUME 8.5 fL (7.4-10.4); MONO % 7.4 %; MONO ABS # 1.31 K/uL (0.11-0.59); NEUT % 86.4 %; NEUT ABS # 15.22 K/uL (1.4-6.5); PLATELET COUNT 174 K/uL (130-400); RED CELL DISTRIBUTION WIDTH CV 14.3 % (11.5-14.5); RED CELL DISTRIBUTION WIDTH SD 48.9 fL (36.4-46.3); WHITE BLOOD COUNT 17.64 K/uL (4.8-10.8)
[2018-05-29 05:16] LABS: CALCIUM 7.7 mg/dl (8.5-10.1); CREATININE 1.19 mg/dl (0.60-1.40); POTASSIUM 4.6 mmol/L (3.5-5.1)
[2018-05-29] MEDS ORDERED: DexMEDEtomidine HCL IV 200 MCG in SODIUM CHLORIDE 0.9% 50ML 48 ML IV STA (08:06)
[2018-05-29] MEDS: DexMEDEtomidine HCL IV 200 MCG in SODIUM CHLORIDE 0.9% 50ML 48 ML IV PRN ×2 (08:32→16:33)
[2018-05-29] MEDS: AMLODIPINE BESYLATE 5 MG TAB PO SCH ×2 (08:57→18:01)
[2018-05-29] MEDS: FLUTICASONE PROPIONATE NA SPR 16 GM BTL NAE SCH (08:57)
[2018-05-29] MEDS: LISINOPRIL 20 MG TAB PO SCH ×2 (08:57→18:01)
[2018-05-29] MEDS: ASPIRIN 81 MG ECTAB PO SCH (08:57)
[2018-05-29] MEDS: SIMETHICONE 80 MG CHEW PO SCH (08:57)
[2018-05-29] MEDS: PANTOprazole SOD 40 MG TAB PO SCH (08:57)
[2018-05-29] MEDS: ENOXAPARIN 40 MG/0.4 ML SYR SQ SCH (08:58)
[2018-05-29] MEDS ORDERED: VENLAFAXINE HCL XR 150 MG CAPXR PO SCH (09:00)
--- NOTE | 2018-05-29 09:42 | Progress Note ---
Progress Note Date of Service: May 29, 2018. Subjective 62 yo m POD #1 after repair of R groin anastomosis d/t acute bleeding from anastomotic disruption, seen in f/u today. Pt remains intubated, however, plans for extubation today. VSS. Pt denies any new pain. Objective Vital Signs Vital Signs Past 12 Hours Date Time Temp Pulse Resp B/P (MAP) Pulse Ox O2 Delivery O2 Flow Rate FiO2 05/29/18 06:01 82 20 116/64 (81) 100 Mechanical Ventilator 05/29/18 06:00 82 20 116/64 (81) 100 Mechanical Ventilator 05/29/18 05:01 78 20 110/62 (78) 100 Mechanical Ventilator 05/29/18 05:00 37.0 80 20 118/64 (82) 100 Mechanical Ventilator 05/29/18 05:00 30 05/29/18 04:01 88 20 154/84 (107) 97 Mechanical Ventilator 05/29/18 04:00 86 20 109/68 (82) 97 Mechanical Ventilator 05/29/18 03:01 86 20 108/71 (83) 96 Mechanical Ventilator 05/29/18 03:00 88 20 111/72 (85) 97 Mechanical Ventilator 05/29/18 02:01 91 19 161/81 (107) 98 Mechanical Ventilator 05/29/18 02:00 92 20 109/72 (84) 98 Mechanical Ventilator 05/29/18 01:40 30 05/29/18 01:02 102 20 112/66 (81) 97 Mechanical Ventilator 05/29/18 01:00 92 20 99/65 (76) 96 Mechanical Ventilator 05/29/18 00:01 87 20 167/81 (109) 97 Mechanical Ventilator 05/29/18 00:00 88 20 156/83 (107) 97 Mechanical Ventilator 05/29/18 00:00 37.1 05/28/18 22:45 79 20 184/88 (120) 100 Mechanical Ventilator 155/79 (104) 05/28/18 22:44 30 05/28/18 22:30 Mechanical Ventilator 30 05/28/18 22:30 30 05/28/18 22:30 74 20 162/79 (106) 100 Mechanical Ventilator 145/75 (98) 05/28/18 22:15 76 20 192/89 (123) 100 Mechanical Ventilator 164/81 (108) 05/28/18 22:00 76 20 183/85 (117) 100 Mechanical Ventilator 150/77 (101) 05/28/18 21:40 86 20 244/116 100 Mechanical Ventilator 30 221/100 Exam CONST: intubated, but responsive CHEST: RRR, lungs decreased, but ctab ABD: soft nontender, + bs x 4 quad EXT: R groin incision C/D/I with tayo. Mild local edema/erythema. No active bleeding noted. R foot +1 distal pulses, warm. Laboratory and Microbiology Results Past 24 Hours Test 05/28/18 17:02 05/28/18 17:07 05/28/18 21:37 05/29/18 01:00 Range/Units White Blood Count 20.36 21.77 4.8-10.8 K/uL Red Blood Count 2.91 3.33 4.7-6.1 M/uL Hemoglobin 8.9 10.3 14.0-18.0 g/dL Hematocrit 27.3 30.9 42-52 % Mean Corpuscular Volume 93.8 92.8 80-100 fL Mean Corpuscular Hemoglobin 30.6 30.9 25-34 pg Mean Corpuscular Hemoglobin Concent 32.6 33.3 32-36 g/dl Platelet Count 219 182 130-400 K/uL Mean Platelet Volume 8.7 8.6 7.4-10.4 fL Neutrophils (%) (Auto) 88.7 89.8 % Lymphocytes (%) (Auto) 3.2 3.3 % Monocytes (%) (Auto) 7.6 6.4 % Eosinophils (%) (Auto) 0.2 0.0 % Basophils (%) (Auto) 0.1 0.1 % Neutrophils # (Auto) 18.06 19.56 1.4-6.5 K/uL Lymphocytes # (Auto) 0.65 0.71 1.2-3.4 K/uL Monocytes # (Auto) 1.54 1.39 0.11-0.59 K/uL Eosinophils # (Auto) 0.05 0.01 0-0.5 K/uL Basophils # (Auto) 0.02 0.02 0-0.2 K/uL RDW Standard Deviation 46.9 47.6 36.4-46.3 fL RDW Coefficient of Variation 13.7 13.9 11.5-14.5 % Immature Granulocyte % (Auto) 0.2 0.4 % Immature Granulocyte # (Auto) 0.04 0.08 0.00-0.02 K/uL Sodium Level 140 136-145 mmol/L Potassium Level 4.8 3.5-5.1 mmol/L Chloride Level 111 98-107 mmol/L Carbon Dioxide Level 22 21-32 mmol/L Anion Gap 7.0 3-11 mmol/L Blood Urea Nitrogen 22 7-18 mg/dl Creatinine 1.28 0.60-1.40 mg/dl Est Creatinine Clear Calc Drug Dose 58.1 ml/min Estimated GFR () 68.1 Estimated GFR (Non- 58.8 BUN/Creatinine Ratio 17.3 10-20 Random Glucose 110 70-99 mg/dl Calcium Level 8.2 8.5-10.1 mg/dl Phosphorus Level 3.0 2.5-4.9 mg/dl Magnesium Level 1.9 1.8-2.4 mg/dl Blood Gas Sample Site Art Line Bedside Blood Gas pH (LAB) 7.26 7.35-7.45 Bedside Blood Gas pCO2 (LAB) 53 35-46 mmHg Bedside Blood Gas pO2 (LAB) 416 80-95 mmHg Bedside Blood Gas HCO3 (LAB) 24 19-24 meq/L Bedside Blood Gas Total CO2 25 24-31 mEq/l Bedside Blood Gas Base Excess (LAB) -4.0 -9-1.8 meq/L Bedside Blood Gas O2 Saturation 100.0 90-95 % Errol Test NA Oxygen Delivery Device Ventilator Bedside Oxygen Rate (breaths/min) 14 Blood Gas Minute Ventilation 7.0 Bedside FiO2 80 % Blood Gas Tidal Volume 500 Blood Gas PEEP 5 Bedside Glucose 129 70-99 mg/dl Test 05/29/18 04:32 05/29/18 05:13 Range/Units White Blood Count 17.64 4.8-10.8 K/uL Red Blood Count 3.05 4.7-6.1 M/uL Hemoglobin 9.3 14.0-18.0 g/dL Hematocrit 28.4 42-52 % Mean Corpuscular Volume 93.1 80-100 fL Mean Corpuscular Hemoglobin 30.5 25-34 pg Mean Corpuscular Hemoglobin Concent 32.7 32-36 g/dl Platelet Count 174 130-400 K/uL Mean Platelet Volume 8.5 7.4-10.4 fL Neutrophils (%) (Auto) 86.4 % Lymphocytes (%) (Auto) 5.4 % Monocytes (%) (Auto) 7.4 % Eosinophils (%) (Auto) 0.5 % Basophils (%) (Auto) 0.1 % Neutrophils # (Auto) 15.22 1.4-6.5 K/uL Lymphocytes # (Auto) 0.96 1.2-3.4 K/uL Monocytes # (Auto) 1.31 0.11-0.59 K/uL Eosinophils # (Auto) 0.09 0-0.5 K/uL Basophils # (Auto) 0.02 0-0.2 K/uL RDW Standard Deviation 48.9 36.4-46.3 fL RDW Coefficient of Variation 14.3 11.5-14.5 % Immature Granulocyte % (Auto) 0.2 % Immature Granulocyte # (Auto) 0.04 0.00-0.02 K/uL Sodium Level 140 136-145 mmol/L Potassium Level 4.6 3.5-5.1 mmol/L Chloride Level 112 98-107 mmol/L Carbon Dioxide Level 22 21-32 mmol/L Anion Gap 6.0 3-11 mmol/L Blood Urea Nitrogen 22 7-18 mg/dl Creatinine 1.19 0.60-1.40 mg/dl Est Creatinine Clear Calc Drug Dose 62.4 ml/min Estimated GFR () 74.4 Estimated GFR (Non- 64.2 BUN/Creatinine Ratio 18.1 10-20 Random Glucose 100 70-99 mg/dl Calcium Level 7.7 8.5-10.1 mg/dl Bedside Glucose 109 70-99 mg/dl Microbiology Results 05/28/18 Gram Stain - Final, Resulted 05/28/18 Bacterial Culture, Resulted Pending ASSESSMENT and PLAN: s/p R groin revision of anastomosis Disruption of R groin anastomosis Pt improved today. Plans for extubation today. Remains stable, continue to monitor.
--- NOTE | 2018-05-29 10:06 | Critical Care Progress Note ---
Critical Care Progress Note Date of Service May 29, 2018. Attending Dr. Grace Subjective Patient was taken to the OR last where his right femoral artery was repaired and hematoma was evacuated. He returned to the ICU on the ventilator overnight. He has had periods of agitation so we initiated a spontaneous breathing trial on Precedex and thus far he is doing well. He is nodding appropriately responsive to command. He has been hemodynamically stable. Objective Patient awake alert denies appropriately Head: Normocephalic atraumatic ENT: Neck supple trachea midline no JVD orotracheally intubated Chest: Coarse breath sounds throughout, moderate secretions, scattered rhonchi, no wheezing Cardiac: Regular rhythm no murmurs rubs gallops Abdomen: Soft nontender normoactive bowel sounds Extremities: Warm well perfused, right groin dressing is dry just recently changed. Neuro: Nonfocal Assessment & Plan (1) Atherosclerosis of artery of both lower extremities Status post right iliac graft stenting and endarterectomy May 03, 2018 with development of right groin hematoma May 28, 2018. Postop day #1 patch repair of right groin hemorrhage with hematoma. Plan: Management per vascular surgery (2) COPD (chronic obstructive pulmonary disease) No evidence of acute exacerbation. Breathing trial in progress. 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 Critical care time 40 minutes Data Medications: Current Inpatient Medications Medications (Trade) Dose Ordered Sig/Justina Route Start Time Stop Time Status Last Admin Dose Admin Enoxaparin Sodium (Lovenox Inj) 40 mg Q24H SQ 05/29/18 09:00 06/28/18 08:59 05/29/18 08:58 40 MG Acetaminophen (Tylenol Tab) 650 mg Q4H PRN PO 05/28/18 14:00 06/27/18 13:59 Ondansetron HCl (Zofran Inj) 4 mg Q6H PRN IV 05/28/18 14:00 06/27/18 13:59 Amlodipine Besylate (Norvasc Tab) 5 mg QAM PO 05/29/18 09:00 06/28/18 08:59 Aspirin (Ecotrin Tab) 81 mg QAM PO 05/29/18 09:00 06/28/18 08:59 Bupropion HCl (Wellbutrin-Sr Tab) 150 mg BID PO 05/28/18 21:00 06/27/18 20:59 Future Hold Fluticasone Propionate (Flonase Nasal [place]) 2 sprays QAM RADHA 05/29/18 09:00 06/28/18 08:59 Lisinopril (Zestril Tab) 20 mg QAM PO 05/29/18 09:00 06/28/18 08:59 Nitroglycerin (Nitrostat Tab) 0.4 mg PRN PRN UT 05/28/18 14:15 06/27/18 14:14 Pantoprazole Sodium (Protonix Tab) 40 mg QAM PO 05/29/18 09:00 06/28/18 08:59 Rosuvastatin Calcium (Crestor Tab) 10 mg HS PO 05/28/18 21:00 06/27/18 20:59 Simethicone (Mylicon Chew Tab) 80 mg QAM PO 05/29/18 09:00 06/28/18 08:59 Tamsulosin HCl (Flomax Cap) 0.4 mg QPM PO 05/28/18 21:00 06/27/18 20:59 Venlafaxine HCl (effeXOR EXTENDED REL CAP) 150 mg QAM PO 05/29/18 09:00 06/28/18 08:59 Future Hold Albuterol (Ventolin Hfa Inhaler) 2 puffs QID PRN INH 05/28/18 14:15 06/27/18 14:14 Midazolam HCl (Versed Inj) 2 mg Q2H PRN IV 05/28/18 16:45 06/27/18 16:44 05/29/18 07:21 2 MG Fentanyl Citrate (Fentanyl Inj) 50 mcg Q1H PRN IV 05/28/18 16:45 06/11/18 16:44 05/29/18 07:22 50 MCG Vancomycin HCl (Consult) 1 ea UD PRN N/A 05/28/18 21:15 06/27/18 21:14 Vancomycin HCl 1000 mg/Sodium Chloride 270 ml @ 125 mls/hr Q14H IV 05/29/18 12:00 06/08/18 11:59 Propofol (Diprivan Iv Emulsion 100ml Vial) 1 dose UD PRN IV 05/29/18 01:01 06/01/18 01:00 05/29/18 06:11 1 DOSE Dexmedetomidine HCl 200 mcg/ Sodium Chloride 50 ml @ 0 mls/hr Q0M PRN IV 05/29/18 08:15 06/02/18 08:14 05/29/18 08:32 3.5 MLS/HR Vital Signs: Date Time Temp Pulse Resp B/P (MAP) Pulse Ox O2 Delivery O2 Flow Rate FiO2 05/29/18 06:01 82 20 116/64 (81) 100 Mechanical Ventilator 05/29/18 06:00 82 20 116/64 (81) 100 Mechanical Ventilator 05/29/18 05:01 78 20 110/62 (78) 100 Mechanical Ventilator 05/29/18 05:00 37.0 80 20 118/64 (82) 100 Mechanical Ventilator 05/29/18 05:00 30 05/29/18 04:01 88 20 154/84 (107) 97 Mechanical Ventilator 05/29/18 04:00 86 20 109/68 (82) 97 Mechanical Ventilator 05/29/18 03:01 86 20 108/71 (83) 96 Mechanical Ventilator 05/29/18 03:00 88 20 111/72 (85) 97 Mechanical Ventilator 05/29/18 02:01 91 19 161/81 (107) 98 Mechanical Ventilator 05/29/18 02:00 92 20 109/72 (84) 98 Mechanical Ventilator 05/29/18 01:40 30 05/29/18 01:02 102 20 112/66 (81) 97 Mechanical Ventilator 05/29/18 01:00 92 20 99/65 (76) 96 Mechanical Ventilator 05/29/18 00:01 87 20 167/81 (109) 97 Mechanical Ventilator 05/29/18 00:00 88 20 156/83 (107) 97 Mechanical Ventilator 05/29/18 00:00 37.1 05/28/18 22:45 79 20 184/88 (120) 100 Mechanical Ventilator 155/79 (104) 05/28/18 22:44 30 05/28/18 22:30 Mechanical Ventilator 30 05/28/18 22:30 30 05/28/18 22:30 74 20 162/79 (106) 100 Mechanical Ventilator 145/75 (98) 05/28/18 22:15 76 20 192/89 (123) 100 Mechanical Ventilator 164/81 (108) 05/28/18 22:00 76 20 183/85 (117) 100 Mechanical Ventilator 150/77 (101) 05/28/18 21:40 86 20 244/116 100 Mechanical Ventilator 30 221/100 05/28/18 21:32 40 05/28/18 21:30 36.6 79 20 174/108 100 Mechanical Ventilator 30 05/28/18 19:35 37.0 05/28/18 19:30 80 20 110/63 99 05/28/18 19:05 40 05/28/18 19:00 79 20 129/74 99 05/28/18 18:50 37.1 95 24 111/64 99 05/28/18 18:39 37.0 91 20 98/65 99 05/28/18 18:21 37.0 94 16 94/57 99 05/28/18 17:30 40 05/28/18 16:40 100 05/28/18 16:08 37.0 94 22 148/66 (93) 99 Nasal Cannula 3.0 05/28/18 15:35 37.0 99 20 136/76 (96) 97 Nasal Cannula 2.0 05/28/18 15:17 37.0 98 20 143/73 (96) 97 Nasal Cannula 2.0 05/28/18 13:01 37.0 92 20 120/65 95 Nasal Cannula 2.0 Laboratory Results: Last 24 Hours Test 05/28/18 17:02 05/28/18 17:07 05/28/18 21:37 05/29/18 01:00 White Blood Count 20.36 K/uL 21.77 K/uL Red Blood Count 2.91 M/uL 3.33 M/uL Hemoglobin 8.9 g/dL 10.3 g/dL Hematocrit 27.3 % 30.9 % Mean Corpuscular Volume 93.8 fL 92.8 fL Mean Corpuscular Hemoglobin 30.6 pg 30.9 pg Mean Corpuscular Hemoglobin Concent 32.6 g/dl 33.3 g/dl Platelet Count 219 K/uL 182 K/uL Mean Platelet Volume 8.7 fL 8.6 fL Neutrophils (%) (Auto) 88.7 % 89.8 % Lymphocytes (%) (Auto) 3.2 % 3.3 % Monocytes (%) (Auto) 7.6 % 6.4 % Eosinophils (%) (Auto) 0.2 % 0.0 % Basophils (%) (Auto) 0.1 % 0.1 % Neutrophils # (Auto) 18.06 K/uL 19.56 K/uL Lymphocytes # (Auto) 0.65 K/uL 0.71 K/uL Monocytes # (Auto) 1.54 K/uL 1.39 K/uL Eosinophils # (Auto) 0.05 K/uL 0.01 K/uL Basophils # (Auto) 0.02 K/uL 0.02 K/uL RDW Standard Deviation 46.9 fL 47.6 fL RDW Coefficient of Variation 13.7 % 13.9 % Immature Granulocyte % (Auto) 0.2 % 0.4 % Immature Granulocyte # (Auto) 0.04 K/uL 0.08 K/uL Sodium Level 140 mmol/L Potassium Level 4.8 mmol/L Chloride Level 111 mmol/L Carbon Dioxide Level 22 mmol/L Anion Gap 7.0 mmol/L Blood Urea Nitrogen 22 mg/dl Creatinine 1.28 mg/dl Est Creatinine Clear Calc Drug Dose 58.1 ml/min Estimated GFR () 68.1 Estimated GFR (Non- 58.8 BUN/Creatinine Ratio 17.3 Random Glucose 110 mg/dl Calcium Level 8.2 mg/dl Phosphorus Level 3.0 mg/dl Magnesium Level 1.9 mg/dl Blood Gas Sample Site Art Line Bedside Blood Gas pH (LAB) 7.26 Bedside Blood Gas pCO2 (LAB) 53 mmHg Bedside Blood Gas pO2 (LAB) 416 mmHg Bedside Blood Gas HCO3 (LAB) 24 meq/L Bedside Blood Gas Total CO2 25 mEq/l Bedside Blood Gas Base Excess (LAB) -4.0 meq/L Bedside Blood Gas O2 Saturation 100.0 % Errol Test NA Oxygen Delivery Device Ventilator Bedside Oxygen Rate (breaths/min) 14 Blood Gas Minute Ventilation 7.0 Bedside FiO2 80 % Blood Gas Tidal Volume 500 Blood Gas PEEP 5 Bedside Glucose 129 mg/dl Test 05/29/18 04:32 05/29/18 05:13 White Blood Count 17.64 K/uL Red Blood Count 3.05 M/uL Hemoglobin 9.3 g/dL Hematocrit 28.4 % Mean Corpuscular Volume 93.1 fL Mean Corpuscular Hemoglobin 30.5 pg Mean Corpuscular Hemoglobin Concent 32.7 g/dl Platelet Count 174 K/uL Mean Platelet Volume 8.5 fL Neutrophils (%) (Auto) 86.4 % Lymphocytes (%) (Auto) 5.4 % Monocytes (%) (Auto) 7.4 % Eosinophils (%) (Auto) 0.5 % Basophils (%) (Auto) 0.1 % Neutrophils # (Auto) 15.22 K/uL Lymphocytes # (Auto) 0.96 K/uL Monocytes # (Auto) 1.31 K/uL Eosinophils # (Auto) 0.09 K/uL Basophils # (Auto) 0.02 K/uL RDW Standard Deviation 48.9 fL RDW Coefficient of Variation 14.3 % Immature Granulocyte % (Auto) 0.2 % Immature Granulocyte # (Auto) 0.04 K/uL Sodium Level 140 mmol/L Potassium Level 4.6 mmol/L Chloride Level 112 mmol/L Carbon Dioxide Level 22 mmol/L Anion Gap 6.0 mmol/L Blood Urea Nitrogen 22 mg/dl Creatinine 1.19 mg/dl Est Creatinine Clear Calc Drug Dose 62.4 ml/min Estimated GFR () 74.4 Estimated GFR (Non- 64.2 BUN/Creatinine Ratio 18.1 Random Glucose 100 mg/dl Calcium Level 7.7 mg/dl Bedside Glucose 109 mg/dl
[2018-05-29] MEDS: VANCOMYCIN IV 1,000 MG in SODIUM CHLORIDE 0.9% 250ML 250 ML IV SCH (11:35)
[2018-05-29] MEDS: TAMSULOSIN HCL 0.4 MG CAP PO SCH (20:51)
[2018-05-29] MEDS: ROSUVASTATIN CALCIUM 10 MG TAB PO SCH (20:51)
[2018-05-30] VITALS (15 sets, daily range): BP systolic 112–178; BP diastolic 67–103; PULSE 76–98; TEMP 36.5–37.5; O2SAT 93–98
[2018-05-30] MEDS: VANCOMYCIN IV 1,000 MG in SODIUM CHLORIDE 0.9% 250ML 250 ML IV SCH ×2 (02:39→15:54)
[2018-05-30] MEDS: FENTANYL CITRATE INJ 50 MCG/1 ML 2 ML VIAL IV PRN ×5 (02:41→15:53)
[2018-05-30] MEDS: FLUTICASONE PROPIONATE NA SPR 16 GM BTL NAE SCH (09:21)
[2018-05-30] MEDS: ASPIRIN 81 MG ECTAB PO SCH (09:21)
[2018-05-30] MEDS: PANTOprazole SOD 40 MG TAB PO SCH (09:22)
[2018-05-30] MEDS: SIMETHICONE 80 MG CHEW PO SCH (09:22)
[2018-05-30] MEDS: ENOXAPARIN 40 MG/0.4 ML SYR SQ SCH (09:23)
[2018-05-30] MEDS: AMLODIPINE BESYLATE 5 MG TAB PO SCH (10:30)
[2018-05-30] MEDS: LISINOPRIL 20 MG TAB PO SCH (10:30)
[2018-05-30 12:43] LABS: CREATININE 1.13 mg/dl (0.60-1.40)
--- NOTE | 2018-05-30 12:48 | Progress Note ---
Progress Note Date of Service: May 30, 2018. Subjective Groin feeling much better. No other complaints Objective Vital Signs Vital Signs Past 12 Hours Date Time Temp Pulse Resp B/P (MAP) Pulse Ox O2 Delivery O2 Flow Rate FiO2 05/30/18 12:00 93 Room Air 05/30/18 08:00 93 Room Air 05/30/18 06:00 84 18 164/76 (105) 93 Room Air 05/30/18 05:00 98 18 112/67 (82) 95 Room Air 05/30/18 04:00 37.2 84 18 148/83 (104) 96 Nasal Cannula 2.0 05/30/18 04:00 Nasal Cannula 2.0 05/30/18 03:00 78 18 165/84 (111) 96 Nasal Cannula 2.0 05/30/18 02:00 85 18 132/82 (99) 97 Nasal Cannula 2.0 05/30/18 01:00 80 18 118/72 (87) 96 Nasal Cannula 2.0 Exam VSS Afebrile Incision with minimal drainage. Good distal flow Intake & Output 8-Hour Column 05/30/18 05/31/18 05/31/18 16:00 00:00 08:00 Intake Total 360 ml Output Total 100 ml Balance 260 ml 24-Hour Column 05/31/18 08:00 Intake Total 360 ml Output Total 100 ml Balance 260 ml Laboratory and Microbiology Results Past 24 Hours Test 05/29/18 17:46 05/30/18 06:25 05/30/18 12:08 Range/Units Bedside Glucose 90 105 70-99 mg/dl Creatinine 1.13 0.60-1.40 mg/dl Est Creatinine Clear Calc Drug Dose 65.5 ml/min Estimated GFR () 79.2 Estimated GFR (Non- 68.3 Microbiology Results 05/29/18 MRSA DNA Surveillance Screen - Final, Complete Specimen Negative for MRSA by DNA Probe Imp: Post repair of right femoral artery patch. Plan: Will consult ID. Most likely will treat with 6weeks of antibiotics for the positive culture. Culture was taken from the depths of the wound. Would not want to remove the patch as this may result in a 60 to 80% AKA of the leg.
[2018-05-30] MEDS ORDERED: VANCOMYCIN TROUGH ONE (15:30)
--- NOTE | 2018-05-30 17:20 | Pharmacy Progress Note ---
Pharmacy Abx Dose Short Note Date of Service May 30, 2018. Assessment & Plan Trough prior to Css, 11mcg/mL. This is a therapeutic level for SST infxns. Will continue with current dose and dosing interval. Renal fxn has improved slightly over the previous 48hrs but not enough to warrant a change in vanco treatment. Trough ordered for 06/01. Pharmacy will continue to follow and will adjust dose/frequency as necessary. Thank you.
[2018-05-30] MEDS: HYDROCODONE/ACETAMINOPHEN 7.5/325MG TAB PO PRN ×2 (18:07→21:49)
[2018-05-30] MEDS ORDERED: HydrALAZINE HCL 20 MG/ML VIAL IV. STA (20:25)
[2018-05-30] MEDS: ROSUVASTATIN CALCIUM 10 MG TAB PO SCH (20:39)
[2018-05-30] MEDS: TAMSULOSIN HCL 0.4 MG CAP PO SCH (20:39)
[2018-05-31] MEDS: HYDROCODONE/ACETAMINOPHEN 7.5/325MG TAB PO PRN ×6 (01:56→23:58)
[2018-05-31 03:59] VITALS: BP 162/78; PULSE 86; TEMP 37; O2SAT 94
[2018-05-31] MEDS: VANCOMYCIN IV 1,000 MG in SODIUM CHLORIDE 0.9% 250ML 250 ML IV SCH (06:11)
[2018-05-31 07:08] VITALS: BP 179/90; PULSE 82; TEMP 36.6; O2SAT 96
[2018-05-31 07:36] LABS: CREATININE 0.97 mg/dl (0.60-1.40)
[2018-05-31] MEDS: FLUTICASONE PROPIONATE NA SPR 16 GM BTL NAE SCH (09:00)
[2018-05-31] MEDS: ASPIRIN 81 MG ECTAB PO SCH (09:08)
[2018-05-31] MEDS: ENOXAPARIN 40 MG/0.4 ML SYR SQ SCH (09:08)
[2018-05-31] MEDS: LISINOPRIL 20 MG TAB PO SCH (09:09)
[2018-05-31] MEDS: SIMETHICONE 80 MG CHEW PO SCH (09:09)
[2018-05-31] MEDS: PANTOprazole SOD 40 MG TAB PO SCH (09:09)
[2018-05-31] MEDS: AMLODIPINE BESYLATE 5 MG TAB PO SCH (09:09)
--- NOTE | 2018-05-31 10:08 | Progress Note ---
Progress Note Date of Service: May 31, 2018. Subjective No complaints. Objective Vital Signs Vital Signs Past 12 Hours Date Time Temp Pulse Resp B/P (MAP) Pulse Ox O2 Delivery O2 Flow Rate FiO2 05/31/18 07:08 36.6 82 20 179/90 (119) 96 Room Air 05/31/18 03:59 37.0 86 20 162/78 (106) 94 Room Air 05/31/18 00:00 Room Air 05/30/18 23:45 37.3 89 20 173/78 (109) 93 Room Air 05/30/18 22:22 37.5 81 20 176/81 (112) 93 Room Air Exam Awake and alert VSS Afebrile Wound with minimal drainage. Erythema markedly decreased. Laboratory and Microbiology Results Past 24 Hours Test 05/30/18 12:08 05/30/18 15:44 05/31/18 06:49 Range/Units Creatinine 1.13 0.97 0.60-1.40 mg/dl Est Creatinine Clear Calc Drug Dose 65.5 76.0 ml/min Estimated GFR () 79.2 95.2 Estimated GFR (Non- 68.3 82.2 Vancomycin Level Trough 10.8 SEE COMMENT mcg/ml Imp: Post right groin hemorrhage. Plan: ID input appreciated. Will switch to rocephin and arrange out patient treatment with visiting nurses.
--- NOTE | 2018-05-31 10:08 | Progress Note ---
Progress Note Date of Service May 31, 2018. Progress Note ID Consult Dictated #[id number] A/P: 1. Infected right groin hematoma - GBS -Will change to Rocephin 2 g daily, will need 6 weeks from 05/28 -Will need weekly cbc, cmp, esr while on therapy -Can follow with ID post d/c from hospital, thank you
--- NOTE | 2018-05-31 10:40 | INFECT. DISEASE CONSULTATION ---
DATE OF CONSULTATION: 05/31/2018 HISTORY OF PRESENT ILLNESS: This is a 62-year-old gentleman who was admitted to the hospital on the . He recently underwent a right femoral endarterectomy with patch placement on 05/03. He initially was doing well postoperatively, but prior to his admission, he noticed increased swelling and wound dehiscence with associated bleeding. He was taken to the operating room on the and intraoperative cultures were obtained. Those are growing group B strep. Final sensitivities are pending. He has been afebrile since admission. He underwent anastomosis and repair. He tolerated the procedure well. He does admit to minimal seeping from the dressing, but states this overall has improved. He initially had a white blood cell count of 20,000. It is improved mildly to 17,000 today. He was placed empirically on vancomycin and he remains on this. No blood cultures were obtained. His renal function has been normal. Most recent vancomycin trough was done yesterday and is 10.8. He currently states he has minimal pain in the groin, but overall states it is significantly improved. He denies any fevers or chills. He has no abdominal pain, nausea, vomiting, or diarrhea. He has no chest pain, cough, or shortness of breath. His remaining review of systems is reviewed and is unremarkable. PAST MEDICAL HISTORY: Peripheral vascular disease, arthrosclerosis of the lower extremities, hypertension, history of stroke with a history of CEA, claudication, history of lung cancer with questionable resection in 12/2016. ADDITIONAL SURGICAL HISTORY: Stenting of the right iliac, right common femoral endarterectomy on 05/03, carotid endarterectomies bilaterally. FAMILY HISTORY: Noncontributory. SOCIAL HISTORY: Significant for daily tobacco use. He denies any alcohol or drug use. ALLERGIES: HE HAS ALLERGIES TO FLUTICASONE, SALMETEROL, VILANTEROL AND UMECLIDINIUM. CURRENT MEDICATIONS: Hydrocodone, vancomycin, Lovenox, Norvasc, aspirin, Flonase, lisinopril, Protonix, Crestor, Ativan, Tylenol, and Zofran. PHYSICAL EXAMINATION: VITAL SIGNS: He is afebrile, pulse 82, respiratory rate 20, blood pressure is 179/90, oxygen saturation is 96% on room air. GENERAL: He is awake, alert, and oriented x3. He is in no acute distress. HEENT: Mucous membranes are moist. Extraocular muscles are intact. HEART: Regular. LUNGS: Clear. ABDOMEN: Soft and nontender. EXTREMITIES: There is no lower extremity edema. SKIN: Without rash. Examination of the right groin reveals the dressing to be clean, dry, and intact. There is no surrounding erythema, warmth, or induration. There is minimal tenderness to palpation. 05/28 culture is growing group B strep. Sensitivities are pending. Chest x-ray in the Emergency Room was unremarkable. ASSESSMENT AND PLAN: Infected right groin wound with likely infected patch. He will be transitioned to Rocephin 2 grams once daily. If his isolate is sensitive, he could be discharged on IV Rocephin. He likely will require 6 weeks of intravenous antibiotics. I did speak with vascular surgery. He will need weekly labs while on antibiotics and can follow up with infectious diseases post-discharge from the hospital. Thank you for this consult. JUJU
[2018-05-31 11:27] VITALS: BP 169/79; PULSE 80; TEMP 36.7; O2SAT 95
[2018-05-31] MEDS: CEFTRIAXONE SOD INJ 2,000 MG in DEXTROSE 5% 50ML 50 ML IV SCH (11:36)
[2018-05-31 15:14] VITALS: BP 171/80; PULSE 77; TEMP 36.5; O2SAT 99
[2018-05-31 19:19] VITALS: BP 180/84; PULSE 74; TEMP 36.6; O2SAT 97
[2018-05-31] MEDS: TAMSULOSIN HCL 0.4 MG CAP PO SCH (21:12)
[2018-05-31] MEDS: ROSUVASTATIN CALCIUM 10 MG TAB PO SCH (21:12)
[2018-05-31 23:38] VITALS: BP 166/82; PULSE 80; TEMP 37.2; O2SAT 95
[2018-06-01] VITALS (7 sets, daily range): BP systolic 137–198; BP diastolic 76–100; PULSE 71–84; TEMP 36.7–37.3; O2SAT 95–99
[2018-06-01] MEDS: HYDROCODONE/ACETAMINOPHEN 7.5/325MG TAB PO PRN ×4 (04:06→18:31)
[2018-06-01] MEDS: ENOXAPARIN 40 MG/0.4 ML SYR SQ SCH (08:12)
[2018-06-01] MEDS: SIMETHICONE 80 MG CHEW PO SCH (08:13)
[2018-06-01] MEDS: PANTOprazole SOD 40 MG TAB PO SCH (08:13)
[2018-06-01] MEDS: AMLODIPINE BESYLATE 5 MG TAB PO SCH (08:13)
[2018-06-01] MEDS: LISINOPRIL 20 MG TAB PO SCH (08:13)
[2018-06-01] MEDS: ASPIRIN 81 MG ECTAB PO SCH (08:14)
[2018-06-01] MEDS: FLUTICASONE PROPIONATE NA SPR 16 GM BTL NAE SCH (08:14)
[2018-06-01 08:28] LABS: CREATININE 0.88 mg/dl (0.60-1.40)
--- NOTE | 2018-06-01 08:56 | Progress Note ---
Progress Note Date of Service: Jun 01, 2018. Subjective No complaints Objective Vital Signs Vital Signs Past 12 Hours Date Time Temp Pulse Resp B/P (MAP) Pulse Ox O2 Delivery O2 Flow Rate FiO2 06/01/18 07:22 37.0 75 20 143/90 (107) 98 Room Air Oxyhood 06/01/18 04:21 191/86 (121) 06/01/18 04:00 82 137/86 (103) 06/01/18 03:09 36.7 84 17 198/85 (122) 95 Room Air 06/01/18 00:01 Room Air 05/31/18 23:38 37.2 80 17 166/82 (110) 95 Room Air Exam VSS Afebrile Awake and alert Right groin with minimal drainage Good distal flow Laboratory and Microbiology Results Past 24 Hours Test 06/01/18 07:33 Range/Units Creatinine 0.88 0.60-1.40 mg/dl Est Creatinine Clear Calc Drug Dose 86.2 ml/min Estimated GFR () 105.2 Estimated GFR (Non- 90.8 Imp: Post repair of femoral patch Infected groin hematoma Plan: Once line placed can d/c on home antibiotics for 6 weeks.
[2018-06-01] MEDS ORDERED: VANCOMYCIN TROUGH ONE (09:30)
[2018-06-01] MEDS: CEFTRIAXONE SOD INJ 2,000 MG in DEXTROSE 5% 50ML 50 ML IV SCH (12:58)
[2018-06-01] MEDS: ROSUVASTATIN CALCIUM 10 MG TAB PO SCH (21:00)
[2018-06-01] MEDS: TAMSULOSIN HCL 0.4 MG CAP PO SCH (21:00)
[2018-06-02] MEDS: HYDROCODONE/ACETAMINOPHEN 7.5/325MG TAB PO PRN ×4 (00:17→19:55)
[2018-06-02 03:55] VITALS: BP 150/83; PULSE 75; TEMP 37.2; O2SAT 96
[2018-06-02 05:01] LABS: BASO % 0.7 %; BASO ABS # 0.05 K/uL (0-0.2); EOS % 8.7 %; EOS ABS # 0.65 K/uL (0-0.5); HEMATOCRIT 28.6 % (42-52); HEMOGLOBIN 9.5 g/dL (14.0-18.0); IG# 0.01 K/uL (0.00-0.02); LYMPH % 21.5 %; LYMPH ABS # 1.61 K/uL (1.2-3.4); MEAN CELL VOLUME 90.8 fL (80-100); MEAN CORPUSCULAR HEMOGLOBIN 30.2 pg (25-34); MEAN CORPUSCULAR HGB CONC 33.2 g/dl (32-36); MEAN PLATELET VOLUME 8.1 fL (7.4-10.4); MONO % 9.6 %; MONO ABS # 0.72 K/uL (0.11-0.59); NEUT % 59.4 %; NEUT ABS # 4.44 K/uL (1.4-6.5); PLATELET COUNT 253 K/uL (130-400); RED CELL DISTRIBUTION WIDTH CV 13.1 % (11.5-14.5); RED CELL DISTRIBUTION WIDTH SD 43.2 fL (36.4-46.3); WHITE BLOOD COUNT 7.48 K/uL (4.8-10.8)
[2018-06-02 05:14] LABS: CREATININE 1.03 mg/dl (0.60-1.40)
[2018-06-02 07:36] VITALS: BP 167/101; PULSE 83; TEMP 37.5; O2SAT 97
[2018-06-02] MEDS: AMLODIPINE BESYLATE 5 MG TAB PO SCH (07:52)
[2018-06-02] MEDS: SIMETHICONE 80 MG CHEW PO SCH (07:52)
[2018-06-02] MEDS: ASPIRIN 81 MG ECTAB PO SCH (07:52)
[2018-06-02] MEDS: LISINOPRIL 20 MG TAB PO SCH (07:52)
[2018-06-02] MEDS: ENOXAPARIN 40 MG/0.4 ML SYR SQ SCH (07:53)
[2018-06-02] MEDS ORDERED: NURSING VERBAL MED ORDER ONE (08:30)
[2018-06-02] MEDS: FLUTICASONE PROPIONATE NA SPR 16 GM BTL NAE SCH (09:25)
[2018-06-02] MEDS: PANTOprazole SOD 40 MG TAB PO SCH (09:25)
[2018-06-02] MEDS: VENLAFAXINE HCL XR 150 MG CAPXR PO SCH (09:40)
[2018-06-02] MEDS: BuPROPion SR 150 MG TABCR PO SCH ×2 (09:40→21:49)
[2018-06-02] MEDS: TIOTROPIUM BROMIDE 5 PUFF/90 MCG INH INH SCH (09:40)
[2018-06-02 11:33] VITALS: BP 130/81; PULSE 70; TEMP 36.4; O2SAT 98
[2018-06-02] MEDS: CEFTRIAXONE SOD INJ 2,000 MG in DEXTROSE 5% 50ML 50 ML IV SCH (12:52)
[2018-06-02 15:25] VITALS: BP 119/73; PULSE 64; TEMP 37; O2SAT 98
[2018-06-02 19:01] VITALS: BP 154/90; PULSE 75; TEMP 37.2; O2SAT 97
[2018-06-02] MEDS: TAMSULOSIN HCL 0.4 MG CAP PO SCH (21:49)
[2018-06-02] MEDS: ROSUVASTATIN CALCIUM 10 MG TAB PO SCH (21:49)
[2018-06-02 23:45] VITALS: BP 164/81; PULSE 76; TEMP 37; O2SAT 98
[2018-06-03 03:18] VITALS: BP 155/82; PULSE 72; TEMP 36.9; O2SAT 97
[2018-06-03] MEDS: HYDROCODONE/ACETAMINOPHEN 7.5/325MG TAB PO PRN ×2 (03:25→11:27)
[2018-06-03 07:06] VITALS: BP 134/85; PULSE 78; TEMP 36.9; O2SAT 98
[2018-06-03] MEDS: PANTOprazole SOD 40 MG TAB PO SCH (07:59)
[2018-06-03] MEDS: AMLODIPINE BESYLATE 5 MG TAB PO SCH (07:59)
[2018-06-03] MEDS: VENLAFAXINE HCL XR 150 MG CAPXR PO SCH (07:59)
[2018-06-03] MEDS: TIOTROPIUM BROMIDE 5 PUFF/90 MCG INH INH SCH (07:59)
[2018-06-03] MEDS: LISINOPRIL 20 MG TAB PO SCH (07:59)
[2018-06-03] MEDS: SIMETHICONE 80 MG CHEW PO SCH (08:00)
[2018-06-03] MEDS: ENOXAPARIN 40 MG/0.4 ML SYR SQ SCH (08:00)
[2018-06-03] MEDS: ASPIRIN 81 MG ECTAB PO SCH (08:00)
[2018-06-03] MEDS: BuPROPion SR 150 MG TABCR PO SCH (08:00)
[2018-06-03] MEDS: FLUTICASONE PROPIONATE NA SPR 16 GM BTL NAE SCH (08:01)
--- NOTE | 2018-06-03 10:25 | Progress Note ---
Progress Note Date of Service: Jun 03, 2018. Subjective 62 yo m with multiple medical problems, s/p R groin arterial repair, seen in f/ u today. Pt denies any new complaints and is anxious to go home. Has R arm access for outpt abx. Objective Vital Signs Vital Signs Past 12 Hours Date Time Temp Pulse Resp B/P (MAP) Pulse Ox O2 Delivery O2 Flow Rate FiO2 06/03/18 08:00 Room Air 06/03/18 07:06 36.9 78 18 134/85 (101) 98 Room Air 06/03/18 03:18 36.9 72 18 155/82 (106) 97 Room Air 06/02/18 23:45 37.0 76 17 164/81 (108) 98 Room Air Exam CONST: A&Ox 3, NAD, mildly chronically ill appearing male 'CHEST: RRR lungs decreased, but ctab ABD: soft, nontender, + bs x 4 quad EXT: R groin incision intact with tayo. Slightly macerated in center, thin skin. Small amt bloody drainage noted on dressing. R foot warm and pink. ASSESSMENT and PLAN: s/p Repair of R groin patch dissociation R groin infection Pt doing well post op. D/C home today once home nursing set up to start home infusions.
[2018-06-03] MEDS ORDERED: CEFT1INJ26 IV (10:32)
--- NOTE | 2018-06-03 10:38 | Discharge Instructions ---
Discharge Instructions Date of Service Jun 03, 2018. Admission Reason for Admission: Infected Hematoma Rt Groin Discharge Discharge Diagnosis / Problem: post repair of R groin patch disruption, infected hematoma Discharge Goals Goal(s): Therapeutic intervention Activity Recommendations Activity Limitations: per Instructions/Follow-up section . Instructions / Follow-Up Instructions / Follow-Up 1. Ambulate as tolerated. 2. May shower if able to keep IV dry. Dry surgical area well. NO SOAKING IN BATH. 3. No lifting more than 10 lbs x 2 weeks. 4. Leave wound open to air if dry. If drainage present, apply thin dressing and change frequently. 5. Needs appt with Dr Akers or Kayla Rodriguez in 2 weeks for staple removal. 6. Needs follow up appt with Dr Davila from Infectious Disease within 1-2 weeks. 7. Obtain labs as ordered. Current Hospital Diet Patient's current hospital diet: AHA Diet (Heart Healthy) Discharge Diet Recommended Diet: AHA Diet (Heart Healthy) Procedures Procedures Performed: Repair of femoral anastamosis Pending Studies Studies pending at discharge: no Medical Emergencies . Who to Call and When: Medical Emergencies: If at any time you feel your situation is an emergency, please call 911 immediately. . Non-Emergent Contact Non-Emergency issues call your: Primary Care Provider, Surgeon . "Provider Documentation" section prepared by Kayla Rodriguez. .
[2018-06-03] MEDS ORDERED: HYDR-3983 PO (10:54)
[2018-06-03] MEDS: CEFTRIAXONE SOD INJ 2,000 MG in DEXTROSE 5% 50ML 50 ML IV SCH (11:04)
[2018-06-03 11:52] VITALS: BP 159/85; PULSE 77; TEMP 37.1; O2SAT 98
== END 2018-06-03 13:00 | disposition home health service (06) | DRG 908 ==
LOC: C.MSW 13:43 → ENRESERV 16:09 → C.MSICU 16:20 → C.2T 05-30 22:21
PROVIDERS: ADMIT Surgery Vascular Surgery; ATTEND Surgery Vascular Surgery
PROC: 04UK0JZ Supplement Right Femoral Artery with Synthetic Substitute, Open Approach (ICD-10-PCS; principal; 2018-05-28 15:30)
PROC: 0Y370ZZ Control Bleeding in Right Femoral Region, Open Approach (ICD-10-PCS; principal; 2018-05-28 15:30)
PROC: 02HV33Z Insertion of Infusion Device into Superior Vena Cava, Percutaneous Approach (ICD-10-PCS; 2018-06-01)
DX: I97.638 Postprocedural hematoma of a circulatory system organ or structure following other circulatory system procedure (principal); T81.31XA Disruption of external operation (surgical) wound, not elsewhere classified, initial encounter; T81.4XXA Infection following a procedure, initial encounter; B95.1 Streptococcus, group B, as the cause of diseases classified elsewhere; I10 Essential (primary) hypertension; I73.9 Peripheral vascular disease, unspecified; I65.29 Occlusion and stenosis of unspecified carotid artery; J44.9 Chronic obstructive pulmonary disease, unspecified; F32.9 Major depressive disorder, single episode, unspecified; K21.9 Gastro-esophageal reflux disease without esophagitis; F17.210 Nicotine dependence, cigarettes, uncomplicated; Z79.899 Other long term (current) drug therapy; Z79.82 Long term (current) use of aspirin; Z79.02 Long term (current) use of antithrombotics/antiplatelets; Z98.890 Other specified postprocedural states; Z95.828 Presence of other vascular implants and grafts; Z85.118 Personal history of other malignant neoplasm of bronchus and lung; Z86.73 Personal history of transient ischemic attack (TIA), and cerebral infarction without residual deficits; Z88.8 Allergy status to other drugs, medicaments and biological substances; Z91.011 Allergy to milk products; Y83.8 Other surgical procedures as the cause of abnormal reaction of the patient, or of later complication, without mention of misadventure at the time of the procedure; Y99.8 Other external cause status